=== PATIENT | male | born 1945 | race Caucasian/White ===

== ENCOUNTER 2016-06-09 00:33 | Inpatient (IN) | payer MEDICARE, BC ==
[2016-06-09] MEDS ORDERED: IPRATROPIUM/ALBUTEROL 3 ML NEB INH STA (00:42)
[2016-06-09] MEDS ORDERED: methylPREDNISolone SUCCINATE 125 MG/2 ML VIAL IVP STA (00:42)
[2016-06-09] MEDS ORDERED: IPRATROPIUM/ALBUTEROL 3 ML NEB INH ONE ×3 (00:49→01:09)
[2016-06-09] MEDS ORDERED: methylPREDNISolone SUCCINATE 125 MG/2 ML VIAL IVP ONE (00:55)
[2016-06-09] MEDS ORDERED: ALBUTEROL NEB 2.5 MG/3 ML INH STA ×7 (01:43→03:19)
[2016-06-09] MEDS ORDERED: levoFLOXacin 250 MG TABLET PO STA (01:45)
[2016-06-09] MEDS ORDERED: levoFLOXacin 250 MG TABLET PO ONE (01:50)
[2016-06-09] MEDS ORDERED: ALBUTEROL NEB 2.5 MG/3 ML INH ONE ×2 (01:53→03:21)
[2016-06-09] MEDS ORDERED: TERBUTALINE 1 MG/ML VIAL SUBQ ONE (02:05)
[2016-06-09] MEDS ORDERED: MAGNESIUM SULFATE 2 GRAM 50 ML IV ONE ×2 (02:05→02:13)
[2016-06-09] MEDS ORDERED: ACETAMINOPHEN 500 MG TABLET PO ONE (04:09)
[2016-06-09] MEDS ORDERED: ACETAMINOPHEN 500 MG TABLET PO STA (04:16)
[2016-06-09] MEDS ORDERED: IBUPROFEN 600 MG TABLET PO PRN (07:19)
[2016-06-09] MEDS ORDERED: oxyCODONE 5 MG TABLET PO PRN ×2 (07:19)
[2016-06-09] MEDS ORDERED: SODIUM CHLORIDE FLUSH 0.9% 10 ML SYRINGE IVP PRN (07:19)
[2016-06-09] MEDS ORDERED: ALBUTEROL NEB 2.5 MG/3 ML INH PRN (07:19)
[2016-06-09] MEDS ORDERED: IPRATROPIUM/ALBUTEROL 3 ML NEB INH PRN (07:19)
[2016-06-09] MEDS: SODIUM CHLORIDE FLUSH 0.9% 10 ML SYRINGE IVP SCH ×2 (09:26→21:50)
[2016-06-09] MEDS: POLYETHYLENE GLYCOL 3350 17 GM PACKET PO SCH (09:26)
[2016-06-09] MEDS: levoFLOXacin 250 MG TABLET PO SCH (09:27)
[2016-06-09] MEDS: SACCHAROMYCES BOULARDII 250 MG CAPSULE PO SCH ×2 (09:27→17:04)
[2016-06-09] MEDS: LEVOTHYROXINE 125 MCG TABLET PO SCH (12:03)
[2016-06-09] MEDS: OXYBUTYNIN 5MG TABLET PO SCH ×2 (12:03→21:49)
[2016-06-09] MEDS: ASPIRIN 325 MG TABLET PO SCH (12:03)
[2016-06-09] MEDS: methylPREDNISolone SUCCINATE 40 MG/ML VIAL IVP SCH ×2 (13:51→21:49)
[2016-06-10] MEDS: IPRATROPIUM 0.2 MG/ML NEB INH PRN ×2 (01:25→10:05)
[2016-06-10] MEDS: LEVALBUTEROL 1.25 MG INH PRN ×2 (01:25→10:05)
[2016-06-10] MEDS: methylPREDNISolone SUCCINATE 40 MG/ML VIAL IVP SCH (06:26)
[2016-06-10] MEDS: SODIUM CHLORIDE FLUSH 0.9% 10 ML SYRINGE IVP SCH (06:27)
[2016-06-10] MEDS: LEVOTHYROXINE 125 MCG TABLET PO SCH (06:27)
[2016-06-10] MEDS: SACCHAROMYCES BOULARDII 250 MG CAPSULE PO SCH (08:44)
[2016-06-10] MEDS: ASPIRIN 325 MG TABLET PO SCH (08:44)
[2016-06-10] MEDS ORDERED: amLODIPine 5 MG TABLET PO SCH (09:00)
[2016-06-10] MEDS: levoFLOXacin 250 MG TABLET PO SCH (09:18)
[2016-06-10] MEDS: OXYBUTYNIN 5MG TABLET PO SCH (09:18)
[2016-06-10] MEDS: POLYETHYLENE GLYCOL 3350 17 GM PACKET PO SCH (09:19)
== END 2016-06-10 12:25 | disposition home or self-care (01) | DRG 189 ==
DX: J96.01 Acute respiratory failure with hypoxia (principal); J44.9 Chronic obstructive pulmonary disease, unspecified; R09.02 Hypoxemia; J18.9 Pneumonia, unspecified organism; J44.1 Chronic obstructive pulmonary disease with (acute) exacerbation; Z68.42 Body mass index [BMI] 45.0-49.9, adult; G47.33 Obstructive sleep apnea (adult) (pediatric); E66.9 Obesity, unspecified; I10 Essential (primary) hypertension; I48.91 Unspecified atrial fibrillation; E03.9 Hypothyroidism, unspecified; Z79.82 Long term (current) use of aspirin; Z86.2 Personal history of diseases of the blood and blood-forming organs and certain disorders involving the immune mechanism

== ENCOUNTER 2016-09-17 08:00 | Outpatient (CLI) | payer MEDICARE, BC | END 2016-09-17 08:01 | disposition home or self-care (01) | DX: I10 Essential (primary) hypertension (principal); E11.9 Type 2 diabetes mellitus without complications; Z12.5 Encounter for screening for malignant neoplasm of prostate; Z79.899 Other long term (current) drug therapy; E03.9 Hypothyroidism, unspecified | CPT/HCPCS: 36415; 80053; 80061; 82043; 83036; 84443; 85025; G0103 ==

== ENCOUNTER 2016-09-17 12:07 | Outpatient (CLI) | payer MEDICARE, BC | END 2016-09-17 12:08 | disposition home or self-care (01) | DX: I34.0 Nonrheumatic mitral (valve) insufficiency (principal); I07.1 Rheumatic tricuspid insufficiency; I10 Essential (primary) hypertension; R60.0 Localized edema; E11.9 Type 2 diabetes mellitus without complications; Z12.5 Encounter for screening for malignant neoplasm of prostate; Z79.899 Other long term (current) drug therapy; E03.9 Hypothyroidism, unspecified | CPT/HCPCS: 36415; 80053; 80061; 82043; 83036; 84443; 85025; 93306; G0103 ==

== ENCOUNTER 2016-10-09 18:46 | Emergency (ER) | payer MEDICARE, BC ==
--- NOTE | 2016-10-09 19:12 | ED Physician Documentation ---
History of Present Illness - Stated complaint Stated Complaint: HIGH BLOOD PRESSURE - Chief complaint Chief Complaint: General - History obtained from History obtained from: Patient, Family - History of Present Illness Timing: Unknown Pain level max: 0 Pain level now: 0 Improved by: nothing Worsened by: nothing - Additonal information Additional information: Patient is a 71-year-old male with a history of hypertension his blood pressure is been higher than usual for the past several days. His doctor told him that if his systolic went over 150 to come to the emergency department to be evaluated. Patient is currently asymptomatic. Has no palpitations, no chest pain, no dyspnea, no headache, no focal neurological deficits. No visual changes. Review of Systems Constitutional: denies: Fever, Chills Eyes: denies: Decreased vision, Photophobia Ears: denies: Ear pain Nose: denies: Rhinorrhea / runny nose, Congestion Throat: denies: Sore throat Cardiac: denies: Chest pain / pressure Respiratory: reports: Wheezing (occasional with asthma). denies: Dyspnea, Cough GI: denies: Abdominal Pain, Nausea, Vomiting Skin: denies: Rash Musculoskeletal: denies: Neck pain, Back pain Neurologic: denies: Focal weakness, Numbness, Syncope, Confused, Altered mental status, Headache PD PAST MEDICAL HISTORY - Past Medical History Cardiovascular: Hypertension, Atrial fibrillation Respiratory: Sleep apnea, CPAP use Neuro: None Endocrine/Autoimmune: HyPOthyroidism GI: None : Frequency, Kidney stones HEENT: None Psych: None Musculoskeletal: None Derm: None - Past Surgical History Past Surgical History: Yes Ortho: Carpal Tunnel surgery HEENT: Cataracts - Present Medications Home Medications: Ambulatory Orders Medication Instructions Recorded Confirmed Aspirin [Haylee] 325 mg PO DAILY 07/08/13 10/09/16 Amlodipine Besylate 10 mg PO DAILY 06/09/16 10/09/16 Irbesartan 300 mg PO DAILY 06/09/16 10/09/16 Levothyroxine [Synthroid] 100 mcg PO QDAC 06/09/16 10/09/16 Metoprolol Succinate [Toprol Xl] 100 mg PO DAILY 06/09/16 10/09/16 Oxybutynin Chloride [Ditropan Xl] 10 mg PO DAILY 06/09/16 10/09/16 Albuterol Sulfate [Proair Hfa 0 inh INH .FREQ 10/09/16 10/09/16 Inhaler] - Allergies Allergies/Adverse Reactions: Allergies Allergy/AdvReac Type Severity Reaction Status Date / Time hydrocodone bitartrate * AdvReac Intermediate Hallucinati Verified 10/09/16 18: 54 [From Vicodin] ons - Social History Does the pt smoke?: No Smoking Status: Never smoker Does the pt drink ETOH?: No Does the pt have substance abuse?: No - Immunizations Immunizations are current?: Yes - POLST Patient has POLST: No PD ED PE NORMAL - Vitals Vital signs reviewed: Yes - General General: Alert and oriented X 3, No acute distress - HEENT HEENT: Moist mucous membranes - Neck Neck: Supple, no meningeal sign - Cardiac Cardiac: RRR - Respiratory Respiratory: No respiratory distress, Clear bilaterally - Abdomen Abdomen: Soft, Non tender, Non distended - Derm Derm: Warm and dry, No rash - Extremities Extremities: No edema, No calf tenderness / cord - Neuro Neuro: Alert and oriented X 3, metrology specialist 2-12 intact, No motor deficit, No sensory deficit, Normal speech - Psych Psych: Normal mood, Normal affect Results - Vitals Vitals: Vital Signs - 24 hr 10/09/16 10/09/16 18:51 19:44 Temperature 36.8 C Heart Rate 50 L 49 L Respiratory 18 18 Rate Blood Pressure 173/70 H 134/70 H O2 Saturation 99 95 Oxygen O2 Source Room air - EKG (time done) 1950 Rate: Rate (enter#) (43) Rhythm: Sinus bradycardia [place]: Normal Intervals: Normal RI QRS: Normal Ischemia: Normal ST segments PD MEDICAL DECISION MAKING - ED course Complexity details: re-evaluated patient, considered differential, d/w patient, d/w PMD (Dr. Connell (will follow up in the office)) ED course: Patient is a 71-year-old male who presents to the emergency department with asymptomatic hypertension. He is well-appearing, nontoxic. Afebrile. No chest pain, no dyspnea. We will have him follow-up with his doctor for further evaluation and care. No evidence clinically of pheochromocytoma, aortic dissection, acute coronary syndrome.Patient had an EKG this week and an echocardiogram last week. Patient and family counseled regarding signs and symptoms for which I believe and urgent re-evaluation would be necessary. Patient with good understanding of and agreement to plan and is comfortable going home at this time This document was made in part using voice recognition software. While efforts are made to proofread this document, sound alike and grammatical errors may occur. Departure - Departure Disposition: 01 Home, Self Care Clinical Impression: Hypertension Qualifiers: Hypertension type: essential hypertension Qualified Code(s): I10 - Essential ( primary) hypertension Condition: Good Instructions: ED HTN Established Follow-Up: Siri Connell MD [Primary Care Provider] - Within 1 week Comments: Return if you worsen including chest pain, shortness of breath, changes in your vision, numbness or weakness. Discharge Date/Time: 10/09/16 20:02
[2016-10-09 19:45] VITALS: BP 134/70
== END 2016-10-09 20:02 | disposition home or self-care (01) ==
LOC: ED 18:46
DX: I10 Essential (primary) hypertension (principal); R00.1 Bradycardia, unspecified; Z79.82 Long term (current) use of aspirin; E03.9 Hypothyroidism, unspecified
CPT/HCPCS: 93005; 93010; 99283; 99284

== ENCOUNTER 2016-10-15 18:05 | Outpatient (CLI) | payer MEDICARE, BC | END 2016-10-15 18:06 | disposition home or self-care (01) | DX: R23.2 Flushing (principal); R00.2 Palpitations ==

== ENCOUNTER 2016-12-31 10:34 | Outpatient (CLI) | payer MEDICARE, BC ==
[2016-12-31 13:10] LABS: BASOPHILS # (AUTO) 0.1 10^3/uL (0.0-0.1); BASOPHILS % (AUTO) 0.9 %; EOSINOPHILS # (AUTO) 0.1 10^3/uL (0.0-0.7); EOSINOPHILS % (AUTO) 2.1 %; HCT - HEMATOCRIT 41.8 % (42.0-52.0); HGB - HEMOGLOBIN 14.5 g/dL (14.0-18.0); LYMPHOCYTES # (AUTO) 1.3 10^3/uL (1.5-3.5); LYMPHOCYTES % (AUTO) 20.6 %; MEAN CORPUSCULAR HEMOGLOBIN 30.8 pg (27.0-31.0); MEAN CORPUSCULAR HGB CONC 34.6 g/dL (32.0-36.0); MEAN PLATELET VOLUME 9.2 fL (7.4-11.4); MONOCYTES # (AUTO) 0.7 10^3/uL (0.0-1.0); MONOCYTES % (AUTO) 11.2 %; NEUTROPHILS % (AUTO) 65.2 %; RED CELL DISTRIBUTION WIDTH 13.8 % (12.0-15.0); UNCORRECTED WHITE BLOOD COUNT 6.2 x10^3/uL; WHITE BLOOD COUNT 6.2 x10^3/uL (4.8-10.8)
[2016-12-31 13:30] LABS: ALBUMIN/GLOBULIN RATIO 1.9 (1.0-2.2); BILIRUBIN,TOTAL 0.8 mg/dL (0.2-1.0); BUN - BLOOD UREA NITROGEN 24 mg/dL (6-20); CALCIUM 9.2 mg/dL (8.5-10.3); CARBON DIOXIDE - CO2 22 mmol/L (21-32); CHLORIDE 105 mmol/L (101-111); CHOLESTEROL 147 mg/dL; CREATININE 1.2 mg/dL (0.6-1.2); GFR - MDRD 60 (>89); GLUCOSE 112 mg/dL (70-100); HDL CHOLESTEROL 37 mg/dL; LDL/HDL RATIO 2.5 (<3.6); POTASSIUM 4.3 mmol/L (3.5-5.0); SODIUM 136 mmol/L (135-145); TOTAL PROTEIN 7.2 g/dL (6.7-8.2); TRIGLYCERIDES 83 mg/dL; VLDL CHOLESTEROL 17 mg/dL
== END 2016-12-31 10:35 | disposition home or self-care (01) ==
LOC: LAB.WCP 10:34
PROVIDERS: ATTEND Family Medicine
DX: I10 Essential (primary) hypertension (principal); E11.9 Type 2 diabetes mellitus without complications; E03.9 Hypothyroidism, unspecified
CPT/HCPCS: 36415; 80053; 80061; 84443; 85025

== ENCOUNTER 2017-07-06 08:00 | Outpatient (CLI) | payer MEDICARE, BC ==
[2017-07-06 20:12] LABS: ALBUMIN 4.7 g/dL (3.2-5.5); ALBUMIN/GLOBULIN RATIO 1.6 (1.0-2.2); ALKALINE PHOSPHATASE 75 IU/L (42-121); ALT ALANINE AMINOTRANSFERASE 27 IU/L (10-60); AST ASPARTATE AMINOTRANSFERASE 24 IU/L (10-42); BILIRUBIN,TOTAL 0.9 mg/dL (0.2-1.0); BUN - BLOOD UREA NITROGEN 24 mg/dL (6-20); CALCIUM 9.2 mg/dL (8.5-10.3); CARBON DIOXIDE - CO2 21 mmol/L (21-32); CHLORIDE 104 mmol/L (101-111); CREATININE 1.4 mg/dL (0.6-1.2); GFR - MDRD 50 (>89); GLUCOSE 103 mg/dL (70-100); SODIUM 137 mmol/L (135-145); TOTAL PROTEIN 7.7 g/dL (6.7-8.2)
[2017-07-06 20:52] LABS: HB2 TOTAL 16.1 g/dL; HEMOGLOBIN A1C 0.56 g/dL; HEMOGLOBIN A1C % 5.3 % (4.6-6.2)
== END 2017-07-06 08:01 | disposition home or self-care (01) ==
LOC: LAB.WCP 08:00
PROVIDERS: ATTEND Family Medicine
DX: E11.9 Type 2 diabetes mellitus without complications (principal); R00.1 Bradycardia, unspecified; R00.2 Palpitations; I10 Essential (primary) hypertension; E03.9 Hypothyroidism, unspecified
CPT/HCPCS: 36415; 80053; 83036; 84443

== ENCOUNTER 2017-08-19 08:00 | Outpatient (CLI) | payer MEDICARE, BC ==
[2017-08-19 18:59] LABS: BASOPHILS % (AUTO) 0.6 %; EOSINOPHILS # (AUTO) 0.1 10^3/uL (0.0-0.7); EOSINOPHILS % (AUTO) 1.6 %; LYMPHOCYTES % (AUTO) 17.7 %; MEAN CORPUSCULAR HEMOGLOBIN 30.8 pg (27.0-31.0); MEAN CORPUSCULAR HGB CONC 33.2 g/dL (32.0-36.0); MEAN CORPUSCULAR VOLUME 92.7 fL (80.0-94.0); MEAN PLATELET VOLUME 9.4 fL (7.4-11.4); MONOCYTES # (AUTO) 0.5 10^3/uL (0.0-1.0); MONOCYTES % (AUTO) 9.6 %; NEUTROPHILS # (AUTO) 3.9 10^3/uL (1.5-6.6); NEUTROPHILS % (AUTO) 70.5 %; PLT - PLATELET COUNT 251 10^3/uL (130-450); RED BLOOD COUNT 4.55 10^6/uL (4.70-6.10); RED CELL DISTRIBUTION WIDTH 13.6 % (12.0-15.0); WHITE BLOOD COUNT 5.5 x10^3/uL (4.8-10.8)
[2017-08-19 19:27] LABS: HB2 TOTAL 15.3 g/dL; HEMOGLOBIN A1C 0.49 g/dL; HEMOGLOBIN A1C % 5.1 % (4.6-6.2)
[2017-08-19 19:35] LABS: ALBUMIN 4.9 g/dL (3.2-5.5); ALBUMIN/GLOBULIN RATIO 1.9 (1.0-2.2); ALKALINE PHOSPHATASE 77 IU/L (42-121); ALT ALANINE AMINOTRANSFERASE 29 IU/L (10-60); AST ASPARTATE AMINOTRANSFERASE 24 IU/L (10-42); BILIRUBIN,TOTAL 0.9 mg/dL (0.2-1.0); BUN - BLOOD UREA NITROGEN 26 mg/dL (6-20); CALCIUM 9.5 mg/dL (8.5-10.3); CARBON DIOXIDE - CO2 23 mmol/L (21-32); CHLORIDE 105 mmol/L (101-111); CHOL/HDL RATIO 4.1 (<5.0); CHOLESTEROL 144 mg/dL; CREATININE 1.3 mg/dL (0.6-1.2); GFR - MDRD 54 (>89); GLUCOSE 103 mg/dL (70-100); HDL CHOLESTEROL 35 mg/dL; LDL CHOLESTEROL,CALCULATED 98 mg/dL; LDL/HDL RATIO 2.8 (<3.6); SODIUM 137 mmol/L (135-145); TOTAL PROTEIN 7.5 g/dL (6.7-8.2); VLDL CHOLESTEROL 11 mg/dL
== END 2017-08-19 08:01 | disposition home or self-care (01) ==
LOC: LAB.WCP 08:00
PROVIDERS: ATTEND Family Medicine
DX: I10 Essential (primary) hypertension (principal); E11.9 Type 2 diabetes mellitus without complications
CPT/HCPCS: 36415; 80053; 80061; 83036; 83721; 84443; 85025

== ENCOUNTER 2017-10-07 08:28 | Inpatient (IN) | payer MEDICARE, BC ==
[2017-10-07] MEDS ORDERED: SODIUM CHLORIDE 0.9% 1,000 ML IV ONE (09:08)
--- NOTE | 2017-10-07 09:15 | ED Physician Documentation ---
History of Present Illness - Stated complaint Stated Complaint: LIGHT HEADED/SOA/RAPID HR - Chief complaint Chief Complaint: Cardiac - Additonal information Additional information: hx from pt 72 male one prior episode on afib - converted in office, was on coumadin for a while fine since then no longer on coumadin this morning at 718 AM felt recurrent a fib he is quite certain this just started today he has felt fine otherwise recently other than a but tired for 2 days (which his does not feel in unusual) no recent med changes no travel no inpt hospital or surgery no CP no fever cough NVD etc no excessive caffeine or stimulants is on wt watchers to lose weight Review of Systems Constitutional: denies: Fever Cardiac: reports: Palpitations. denies: Chest pain / pressure Respiratory: denies: Dyspnea GI: denies: Abdominal Pain, Nausea, Vomiting, Diarrhea Neurologic: reports: Generalized weakness Endocrine: denies: Easy bruising / bleeding Immunocompromised: denies: Immunocompromised PD PAST MEDICAL HISTORY - Past Medical History Cardiovascular: Hypertension, Atrial fibrillation Respiratory: Sleep apnea, CPAP use Neuro: None Endocrine/Autoimmune: HyPOthyroidism GI: None : Frequency, Kidney stones HEENT: None Psych: None Musculoskeletal: None Derm: None - Past Surgical History Past Surgical History: Yes Ortho: Carpal Tunnel surgery HEENT: Cataracts - Present Medications Home Medications: Ambulatory Orders Medication Instructions Recorded Confirmed Aspirin [Haylee] 325 mg PO DAILY 07/08/13 10/09/16 Amlodipine Besylate 5 mg PO DAILY 06/09/16 10/09/16 Irbesartan 300 mg PO DAILY 06/09/16 10/09/16 Levothyroxine [Synthroid] 100 mcg PO QDAC 06/09/16 10/09/16 Oxybutynin Chloride [Ditropan Xl] 10 mg PO DAILY 06/09/16 10/09/16 Albuterol Sulfate [Proair Hfa 0 inh INH .FREQ 10/09/16 10/09/16 Inhaler] Chlorthalidone 25 10/07/17 Escitalopram [Lexapro] 15 10/07/17 buPROPion [Wellbutrin Sr] 150 10/07/17 - Allergies Allergies/Adverse Reactions: Allergies Allergy/AdvReac Type Severity Reaction Status Date / Time hydrocodone bitartrate * AdvReac Intermediate Hallucinati Verified 10/09/16 18: 54 [From Vicodin] ons - Social History Does the pt smoke?: No Smoking Status: Never smoker Does the pt drink ETOH?: No Does the pt have substance abuse?: No - Immunizations Immunizations are current?: Yes - POLST Patient has POLST: No PD ED PE NORMAL - Vitals Vital signs reviewed: Yes - Cardiac Cardiac: No: RRR (irreg) - Respiratory Respiratory: No respiratory distress, Clear bilaterally - Abdomen Abdomen: Soft, Non tender - Derm Derm: Normal color - Extremities Extremities: No tenderness to palpate, No edema, No calf tenderness / cord - Neuro Neuro: Alert and oriented X 3 Results - Vitals Vitals: Vital Signs - 24 hr 10/07/17 10/07/17 10/07/17 08:41 10:17 11:46 Temperature 36.3 C L Heart Rate 107 H 116 H 105 H Respiratory 16 12 12 Rate Blood Pressure 116/73 123/86 H 100/75 O2 Saturation 97 98 97 10/07/17 10/07/17 10/07/17 12:24 13:23 14:50 Temperature Heart Rate 108 H 102 H 100 Respiratory 16 18 12 Rate Blood Pressure 117/100 H 112/67 128/85 H O2 Saturation 98 100 99 10/07/17 10/07/17 10/07/17 15:50 16:00 16:35 Temperature Heart Rate 110 H 110 H 119 H Respiratory 12 12 17 Rate Blood Pressure 120/84 H 110/80 O2 Saturation 98 98 10/07/17 10/07/17 10/07/17 17:07 18:08 19:17 Temperature Heart Rate 108 H 93 88 Respiratory 12 16 12 Rate Blood Pressure 119/77 107/72 114/96 H O2 Saturation 98 100 98 Oxygen O2 Source Nasal cannula - EKG (time done) 0841 Rate: Rate (enter#) (113) Rhythm: Atrial fibrillation Intervals: Prolonged QT (prolonged). No: Normal ND Ischemia: ST depression (likely rate related) - Labs Labs: Laboratory Tests 10/07/17 10/07/17 10/07/17 08:57 08:57 08:57 WBC 5.3 RBC 4.58 L Hgb 14.5 Hct 42.2 MCV 92.0 MCH 31.6 H MCHC 34.4 RDW 13.0 Plt Count 204 MPV 8.7 Neut # 3.8 Lymph # 0.7 L Burt # 0.5 Eos # 0.1 Baso # 0.1 Absolute Nucleated RBC 0.00 Nucleated RBC % 0.1 Sodium 134 L Potassium 3.7 Chloride 104 Carbon Dioxide 21 Anion Gap 9.0 BUN 17 Creatinine 1.4 H Estimated GFR (MDRD) 50 L Glucose 108 H Calcium 8.9 Troponin I < 0.04 B-Natriuretic Peptide 10/07/17 08:57 WBC RBC Hgb Hct MCV MCH MCHC RDW Plt Count MPV Neut # Lymph # Burt # Eos # Baso # Absolute Nucleated RBC Nucleated RBC % Sodium Potassium Chloride Carbon Dioxide Anion Gap BUN Creatinine Estimated GFR (MDRD) Glucose Calcium Troponin I B-Natriuretic Peptide 25 Procedures - Procedural sedation Sedation prep: Informed consent, Time out completed, Last meal (yesterday), PE performed, AHA 2 - mild disease, IV O2 monitor, ET CO2 monitor, RT present Sedation medications: morphine, propofol, given by MD Patient status during sedation: Responds to verbal, Vitals remained stable, Maintained airway, Recovered uneventfully. No: Complications Sedation recovery: Recovered uneventfully - Cardioversion 1 Time of attempt: 14:45 Indication: Other (continued a fib) Risks, benefits, alternatives explained to: Pt, Other () Prep: IV, O2, environmental monitoring technician, Pulse ox, Airway equip Meds: Morphine, Propofol CS via: Pads, AP approach Sync: Biphasic, 50j Post cardioversion rhythm: A-fib Complications: Other (none) Performed by: ED MD 2 Time of attempt: 16:45 Indication: Other (a fib) Risks, benefits, alternatives explained to: Pt Prep: IV, O2, environmental monitoring technician, Pulse ox, Airway equip Meds: Morphine, Propofol CS via: Pads, AP approach Sync: 100j Post cardioversion rhythm: A-fib Complications: Other (none) Performed by: ED MD 3 Time of attempt: 16:45 Indication: Other (a fib) Risks, benefits, alternatives explained to: Pt Prep: IV, O2, environmental monitoring technician, Pulse ox, Airway equip Meds: Morphine, Propofol CS via: AP approach Sync: 200j Post cardioversion rhythm: A-fib Complications: Other (none) Performed by: ED PD MEDICAL DECISION MAKING - ED course ED course: fairly certain onset a fib 718 this AM one prior brief episode a fib but not normally in a fib fairly symptomatic but not unstable did not convert with procainamide did not convert with cardiovert at 50, 100, or 200 J biphasic now tachy no dilt (hospital shortage) so gave lopressor IV and HR down under 105, BP also about 110 may eventually be dced on rate control meds and xarelto but feel pt needs to be stabilized on oral meds, perhaps have an echo etc spoke to day hospitalist who rec inpt, night hospitalist to ED for admit Departure - Departure Disposition: 66 [facility] DC/Xfer Clinical Impression: Renal insufficiency Atrial fibrillation Qualifiers: Atrial fibrillation type: paroxysmal Qualified Code(s): I48.0 - Paroxysmal atrial fibrillation Condition: Fair Comments: Do not take your lexapro for 48 hr as it potentially could interact with some of the medications given in the ER
--- NOTE | 2017-10-07 09:16 | XRAY Report ---
EXAM: CHEST RADIOGRAPHY EXAM DATE: 10/07/2017 08:54 AM. CLINICAL HISTORY: [place]. COMPARISON: 06/09/2016. TECHNIQUE: 1 view. FINDINGS: Lungs/Pleura: No focal opacities evident. No pleural effusion. No pneumothorax. Mediastinum: Within exam limitations, the cardiomediastinal contour is normal. Other: None. IMPRESSION: No active cardiopulmonary disease [facility] Referring Provider Line: [phone] SITE ID: [id number]
--- NOTE | 2017-10-07 09:16 | XRAY Preliminary Report ---
Exam: XR CHEST 1 VIEW X-RAY IMPRESSION: No active cardiopulmonary disease [facility] SITE ID: [id number]
[2017-10-07] MEDS ORDERED: PROCAINAMIDE 1,000 MG in SODIUM CHLORIDE 0.9% 240 ML IV STA ×2 (09:17→11:56)
[2017-10-07 09:20] LABS: CALCIUM 8.9 mg/dL (8.5-10.3); CREATININE 1.4 mg/dL (0.6-1.2)
[2017-10-07 09:22] LABS: BASOPHILS # (AUTO) 0.1 10^3/uL (0.0-0.1); BASOPHILS % (AUTO) 1.1 %; EOSINOPHILS # (AUTO) 0.1 10^3/uL (0.0-0.7); EOSINOPHILS % (AUTO) 2.6 %; HGB - HEMOGLOBIN 14.5 g/dL (14.0-18.0); LYMPHOCYTES # (AUTO) 0.7 10^3/uL (1.5-3.5); LYMPHOCYTES % (AUTO) 13.8 %; MEAN CORPUSCULAR HEMOGLOBIN 31.6 pg (27.0-31.0); MEAN CORPUSCULAR HGB CONC 34.4 g/dL (32.0-36.0); MEAN PLATELET VOLUME 8.7 fL (7.4-11.4); MONOCYTES # (AUTO) 0.5 10^3/uL (0.0-1.0); MONOCYTES % (AUTO) 9.7 %; NEUTROPHILS # (AUTO) 3.8 10^3/uL (1.5-6.6); NEUTROPHILS % (AUTO) 72.8 %; PLT - PLATELET COUNT 204 10^3/uL (130-450); RED BLOOD COUNT 4.58 10^6/uL (4.70-6.10); WHITE BLOOD COUNT 5.3 x10^3/uL (4.8-10.8)
[2017-10-07] MEDS ORDERED: PROPOFOL 200 MG/20 ML VIAL IVP STA (15:26)
[2017-10-07] MEDS ORDERED: MORPHINE 2 MG/ML SYRINGE IVP STA (15:26)
[2017-10-07] MEDS ORDERED: PROMETHAZINE INJ 12.5 MG in SODIUM CHLORIDE 0.9% 50 ML IV STA (15:26)
[2017-10-07] MEDS ORDERED: METOPROLOL 5 MG/5 ML VIAL IVP STA (16:49)
[2017-10-07] MEDS ORDERED: ONDANSETRON 4 MG/2 ML VIAL IVP PRN (19:54)
[2017-10-07] MEDS ORDERED: SODIUM CHLORIDE FLUSH 0.9% 10 ML SYRINGE IVP PRN (19:54)
[2017-10-07] MEDS: APIXABAN 2.5 MG TABLET PO SCH (22:43)
[2017-10-07] MEDS: METOPROLOL TARTRATE 50 MG TABLET PO SCH (22:43)
[2017-10-07 23:07] LABS: HB2 TOTAL 15.8 g/dL; HEMOGLOBIN A1C 0.48 g/dL; HEMOGLOBIN A1C % 4.9 % (4.6-6.2)
--- NOTE | 2017-10-08 03:29 | HISTORY & PHYSICAL EXAMINATION ---
DATE OF SERVICE: 10/07/2017 Physician: Tiffany Frazier MD CHIEF COMPLAINT: Palpitations. HISTORY OF PRESENT ILLNESS: Patient is a pleasant 72-year-old white male with multiple past medical problems, including history of paroxysmal atrial fibrillation, who presented to the ER around 8:30 a.m. on 10/07/2017. Patient reported that he had an episode of atrial fibrillation about 6 years ago. At that time, he was on Coumadin for about a month and took metoprolol for rate control. The metoprolol recently brought his heart rate down to the 30s and 40s; therefore, about 9 months ago, it was discontinued. Notably, patient also takes amlodipine for control of hypertension. Patient reported that on the morning of 10/07/2017 around 7:30 a.m., his entered his room, waking him up, turning on the radio. When he woke up , he suddenly felt palpitations, which were exactly the same as he felt 6 years ago with the first episode of atrial fibrillation. He knew the symptoms very well; therefore, he came to the ER for evaluation. He denied associated symptoms of shortness of breath, chest pain, dizziness, lightheadedness or any additional complaint. Upon presentation to the ER, he was found in atrial fibrillation and rapid ventricular rate. EKG showed nonspecific changes , no acute ischemia. Troponin was negative. The heart rate was around 120. Chest x-ray did not show acute abnormality. Laboratory workup was unremarkable, noting that patient has chronic renal insufficiency. Creatinine was 1.4, which was in the upper range of his baseline. BNP was 25. Patient stayed in the ER basically all day long. Dr. Yepez took care of him and attempted pharmacologic cardioversion initially using procainamide. The patient did not respond and remained in atrial fibrillation. Therefore, electrocardioversion was attempted 3 times using 150 joules first, subsequently 200 joules. Regardless of all these interventions, the patient remained with atrial fibrillation. He did receive a dose of IV metoprolol. His heart rate in the afternoon was mainly in the 90s and his blood pressure was 110/72. He still felt symptomatic with palpitations when I examined him around 7:30 p.m. PAST MEDICAL HISTORY 1. Paroxysmal atrial fibrillation. Currently not on anticoagulation and not really taking any rate control medication, although takes amlodipine, but that would not be exactly for atrial fibrillation rate control. 2. Hypertension. 3. Hypothyroidism. 4. Depression. 5. History of nephrolithiasis. 6. COPD/asthma. 7. Remote history of rheumatic fever in childhood around age 4. 8. Obstructive sleep apnea on nocturnal CPAP. 9. Overactive bladder. 10. Chronic kidney disease with creatinine baseline between 1.2 and 1.4. 11. Past echocardiogram was from 08/2016. It showed mild concentric left ventricular hypertrophy. Systolic function was normal with ejection fraction of 60%-65%. There was moderate right atrial enlargement, mild aortic regurgitation, mild to moderate mitral regurgitation, mild to moderate tricuspid regurgitation, and abnormal right heart pressures. Cardiac catheterization with Dr. Kuldeep Ac. OUTPATIENT MEDICATIONS: Being reconciled. Patient was on 1. Bupropion. 2. Lexapro. 3. Chlorthalidone. 4. Amlodipine. 5. Ditropan. 6. Levothyroxine. 7. Irbesartan. 8. Aspirin. 9. Albuterol SOCIAL HISTORY: Patient does not smoke, does not drink. He is fully functional with activities of daily living. FAMILY HISTORY: Positive for throat cancer and parathyroid cancer. INDUSTRIAL SAFETY ENGINEER: Dr. Finnegan. REVIEW OF SYSTEMS: Please see pertinent positives listed above at history of present illness. Patient did not report additional complaints on the 12-point review. PHYSICAL EXAMINATION VITAL SIGNS: Temperature 36.6 Celsius, heart rate in the 90s, blood pressure 115/65, respiratory rate 16, oxygen saturation 98% on room air. GENERAL: Patient is a well-developed male who was not in distress. NEUROLOGIC: Alert, oriented, nonfocal. PSYCHIATRIC: Cooperative. SKIN: With signs of chronic venous stasis on the lower extremities and dry skin on the upper extremities. [place] cheeks. No jaundice. No pallor. CARDIOVASCULAR: S1, S2, irregularly irregular. Heart sounds were distant. I could not hear a significant murmur, although in past medical record, a 2/6 systolic murmur was described. RESPIRATORY: Normal respiratory rate. No increased work of breathing. Clear to auscultation bilaterally without wheezes or crackles. ABDOMEN: Obese, benign. Bowel tones present. MUSCULOSKELETAL: Truncal obesity, atraumatic. 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 ASSESSMENT/ACTIVE ISSUES 1. Atrial fibrillation with rapid ventricular rate. Patient started to feel symptoms when he woke up in the morning. It is not exactly known how long he has been in atrial fibrillation as the atrial fibrillation could develop in his sleep, but patient seems pretty sure that the onset was somewhat acute. 2. Recent history of bradycardia on metoprolol. That is why metoprolol was discontinued 9 months ago. Patient might be developing tachy/amira syndrome. For now, we will attempt restarting metoprolol. If he will be bradycardic, then obviously he should be evaluated for pacemaker implant. In the meantime, I will hold amlodipine as that could be negative chronotropic as well. 3. Chronic renal insufficiency, creatinine around baseline. 4. Obstructive sleep apnea, using CPAP. 5. Multiple chronic medical problems as listed in past medical history. Overall, hemodynamically stable. 6. Prolonged ER course. The patient stayed in the ER from 8:30 in the morning to 7:30 p.m. He underwent cardioversion 3 times and received sedatives. He still was symptomatic when I examined him and it seems that his heart rate is still not controlled. He has multiple risk factors which would make him high risk to develop tachycardia or bradycardia or other cardiac arrhythmia and complications. Therefore, he will need to be hospitalized until he gets stable enough to be discharged. PLAN AND ORDERS: Patient is getting admitted as inpatient. I expect that he will be hospitalized for 2 days. We will start metoprolol tartrate, monitor on telemetry, check hemoglobin A1c, recheck troponin, order echocardiogram for the morning. Regarding CHADS2-VASc score, it is at least 2, given history of hypertension and age. It could be higher due to cardiomyopathy. Echocardiogram is pending. The patient has a remote history of rheumatic fever, and I think that oral anticoagulant could be a good start. Depending on the echocardiogram result such as if significant valvular heart disease is shown, then obviously NOAC would not be the best choice, and in that case, Coumadin might need to be considered. This issue could also be discussed with the patient's organ pipe voicer, Dr. Finnegan. For now, I started David. Our goal during this hospital stay should be to stabilize the patient hemodynamically, start anticoagulation, and then refer him for outpatient cardiology followup to arrange for cardioversion or other therapies as needed. That all depends on the clinical course. Time spent with the care of this patient was 60 minutes. ATTESTATION: I certify that the reasonable expectation for this patient is to remain hospitalized for 48 hours, however, to discharge or transfer to another facility within 96 hours. TD: 10/08/2017 03:28 BHUPINDER
[2017-10-08 06:11] LABS: CALCIUM 8.9 mg/dL (8.5-10.3); CREATININE 1.2 mg/dL (0.6-1.2)
[2017-10-08] MEDS: METOPROLOL TARTRATE 50 MG TABLET PO SCH ×3 (06:35→21:27)
[2017-10-08] MEDS: SODIUM CHLORIDE FLUSH 0.9% 10 ML SYRINGE IVP SCH ×3 (06:37→21:05)
[2017-10-08] MEDS: LEVOTHYROXINE 125 MCG TABLET PO SCH (06:52)
[2017-10-08] MEDS ORDERED: ALBUTEROL NEB 2.5 MG/3 ML INH PRN (07:06)
[2017-10-08] MEDS: APIXABAN 2.5 MG TABLET PO SCH ×2 (08:19→21:05)
[2017-10-08] MEDS: POLYETHYLENE GLYCOL 3350 17 GM PACKET PO SCH (08:19)
[2017-10-08] MEDS: ASCORBIC ACID CHEW 500 MG TABLET PO SCH (08:19)
[2017-10-08] MEDS: TOLTERODINE LA 2 MG CAPSULE PO SCH (08:19)
[2017-10-08] MEDS: buPROPion SR 150 MG TABLET PO SCH (08:19)
[2017-10-08] MEDS: CHOLECALCIFEROL 5,000 UNIT CAPSULE PO SCH (08:19)
[2017-10-08] MEDS ORDERED: FLUTICASONE NASAL SPRAY NAS PRN (11:32)
--- NOTE | 2017-10-08 18:32 | PROVIDER PROGRESS NOTE ---
Assessment/Plan - Problem List (1) Atrial fibrillation with RVR Assessment/Plan: I discussed potential etiology of his Afib: rheumatic valvular disease and borderline cardiomyopathy vs due to VINICIUS. Will continue present meds which are controlling his HR, watch for amira (as his Metoprolol caused HRs in the 30's in the past) and I will speak to his Airdox Fitter in am, if he hasn't converted to NSR by tomorrow am. Continue Eliquis for stroke prophylaxis. 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 (3) HTN (hypertension) Qualifiers: Hypertension type: essential hypertension Qualified Code(s): I10 - Essential (primary) hypertension Assessment/Plan: BP is controlled on Metoprolol dose only, other BP meds were stopped to allow the Bblocker to be used for HR control. (4) Cardiomyopathy Assessment/Plan: Probably due to rheumatic valve disease. Continue B-marie and may restart DINAH before DCh, if BP not too low. (5) VINICIUS on CPAP Assessment/Plan: Continue and may use CPAP here. - Current Meds Current Meds: Current Medications Generic Name Dose Route Start Last Admin Trade Name Freq PRN Reason Stop Dose Admin Apixaban 5 mg 10/07/17 21:00 10/08/17 08:19 Eliquis PO 5 mg BID JENI Administration Ascorbic Acid 2,000 mg 10/08/17 09:00 10/08/17 08:19 Vitamin C PO 1,000 mg DAILY JENI Administration Bupropion HCl 150 mg 10/08/17 09:00 10/08/17 08:19 Wellbutrin Sr PO 150 mg DAILY JENI Administration Cholecalciferol 5,000 unit 10/08/17 09:00 10/08/17 08:19 Vitamin D3 PO 5,000 unit DAILY JENI Administration Levothyroxine Sodium 125 mcg 10/08/17 07:00 10/08/17 06:52 Synthroid PO 125 mcg QDAC JENI Administration Metoprolol Tartrate 25 mg 10/07/17 22:00 10/08/17 14:46 Lopressor PO 25 mg Q8HR JENI Administration Polyethylene Glycol 17 gm 10/08/17 09:00 10/08/17 08:19 Miralax PO Not Given DAILY JENI Sodium Chloride 10 ml 10/08/17 01:00 10/08/17 08:19 Normal Saline Flush 0.9% IVP 10 ml 0100,[id number],1700 JENI Administration Tolterodine Tartrate 2 mg 10/08/17 09:00 10/08/17 08:19 Detrol La PO 2 mg DAILY JENI Administration - Lab Result Fish Bone Diagrams: 10/07/17 08:57 10/08/17 05:15 Subjective - Subjective Patient Reports: Other (No "racing palpitations but still feels something is not right.") Objective Vital Signs: Vital Signs - 24 hr 10/07/17 10/07/17 10/07/17 20:20 20:33 22:43 Temperature 36.5 C 36.6 C Heart Rate 89 Heart Rate [ 99 Brachial] Respiratory 16 16 Rate Blood Pressure 122/81 H 126/75 Blood Pressure 115/65 [Right Brachial artery] O2 Saturation 97 98 10/07/17 10/08/17 10/08/17 23:50 05:00 06:35 Temperature 36.5 C 36.5 C Heart Rate Heart Rate [ 86 85 Brachial] Respiratory 16 16 Rate Blood Pressure 108/65 Blood Pressure 110/80 108/65 [Right Brachial artery] O2 Saturation 96 95 10/08/17 10/08/17 10/08/17 07:23 12:51 14:14 Temperature 36.3 C L 36.3 C L Heart Rate Heart Rate [ 82 84 76 Brachial] Respiratory 16 20 Rate Blood Pressure Blood Pressure 110/72 106/67 103/70 [Right Brachial artery] O2 Saturation 98 97 10/08/17 10/08/17 14:43 16:49 Temperature 36.9 C Heart Rate Heart Rate [ 82 82 Brachial] Respiratory 24 Rate Blood Pressure Blood Pressure 122/73 112/69 [Right Brachial artery] O2 Saturation 96 Oxygen O2 Source Room air I&O (Last 24 Hrs): Intake and Output Totals x24h 10/06/17 10/07/17 10/08/17 23:59 23:59 23:59 Intake Total 1290 Balance 1290 General: Alert, Oriented x3 HEENT: Mucous membr. moist/pink Neck: Supple, No JVD, +2 carotid pulse wo bruit Neuro: Non Focal Cardiovascular: Other (Ireg, 1/6 systolic murmur at apex) Respiratory: No respiratory distress Abdomen: Soft, Other (Obese with pannus.) Extremities: Other (1+ pretibial edema with venpus stasis changes.) - Results Results: Laboratory Results WBC 5.3 x10^3/uL (4.8-10.8) 10/07/17 08:57 RBC 4.58 10^6/uL (4.70-6.10) L 10/07/17 08:57 Hgb 14.5 g/dL (14.0-18.0) 10/07/17 08:57 Hct 42.2 % (42.0-52.0) 10/07/17 08:57 MCV 92.0 fL (80.0-94.0) 10/07/17 08:57 MCH 31.6 pg (27.0-31.0) H 10/07/17 08:57 MCHC 34.4 g/dL (32.0-36.0) 10/07/17 08:57 RDW 13.0 % (12.0-15.0) 10/07/17 08:57 Plt Count 204 10^3/uL (130-450) 10/07/17 08:57 MPV 8.7 fL (7.4-11.4) 10/07/17 08:57 Neut # 3.8 10^3/uL (1.5-6.6) 10/07/17 08:57 Lymph # 0.7 10^3/uL (1.5-3.5) L 10/07/17 08:57 [place] # 0.5 10^3/uL (0.0-1.0) 10/07/17 08:57 Eos # 0.1 10^3/uL (0.0-0.7) 10/07/17 08:57 Baso # 0.1 10^3/uL (0.0-0.1) 10/07/17 08:57 Absolute Nucleated RBC 0.00 x10^3/uL 10/07/17 08:57 Nucleated RBC % 0.1 /100WBC 10/07/17 08:57 Sodium 139 mmol/L (135-145) 10/08/17 05:15 Potassium 3.8 mmol/L (3.5-5.0) 10/08/17 05:15 Chloride 107 mmol/L (101-111) 10/08/17 05:15 Carbon Dioxide 24 mmol/L (21-32) 10/08/17 05:15 Anion Gap 8.0 (6-13) 10/08/17 05:15 BUN 13 mg/dL (6-20) 10/08/17 05:15 Creatinine 1.2 mg/dL (0.6-1.2) 10/08/17 05:15 Estimated GFR (MDRD) 59 (>89) L 10/08/17 05:15 Glucose 92 mg/dL (70-100) 10/08/17 05:15 Glycated Hemoglobin 4.9 % (4.6-6.2) 10/07/17 08:57 Estim Average Glucose 94 (70-100) 10/07/17 08:57 Calcium 8.9 mg/dL (8.5-10.3) 10/08/17 05:15 Troponin I < 0.04 ng/mL (<0.49) 10/07/17 22:00 B-Natriuretic Peptide 25 pg/mL (5-100) 10/07/17 08:57 ABX Reporting Has patient been on IV antibiotics over the past 48 hours?: No
[2017-10-09] MEDS: SODIUM CHLORIDE FLUSH 0.9% 10 ML SYRINGE IVP SCH ×2 (00:01→09:07)
[2017-10-09] MEDS: METOPROLOL TARTRATE 50 MG TABLET PO SCH (06:31)
[2017-10-09] MEDS: LEVOTHYROXINE 125 MCG TABLET PO SCH (06:31)
[2017-10-09] MEDS: POLYETHYLENE GLYCOL 3350 17 GM PACKET PO SCH (09:07)
[2017-10-09] MEDS: APIXABAN 2.5 MG TABLET PO SCH (09:07)
[2017-10-09] MEDS: buPROPion SR 150 MG TABLET PO SCH (09:07)
[2017-10-09] MEDS: TOLTERODINE LA 2 MG CAPSULE PO SCH (09:07)
[2017-10-09] MEDS: ASCORBIC ACID CHEW 500 MG TABLET PO SCH (09:07)
[2017-10-09] MEDS: CHOLECALCIFEROL 5,000 UNIT CAPSULE PO SCH (09:07)
[2017-10-09] MEDS ORDERED: diltiaZEM CD 180 MG CAPSULE PO SCH (13:00)
--- NOTE | 2017-10-09 19:32 | Discharge Plan ---
Discharge Plan Disposition: Home, Self Care Condition: Stable Prescriptions: Apixaban [Eliquis] 5 mg PO BID #60 tablet diltiaZEM CD [Cardizem Cd] 180 mg PO DAILY #30 capsule Diet: Cardiac Activity Restrictions: Activity as Tolerated Shower Restrictions: No Driving Restrictions: No Instruction Topics: Stroke Prevent Live W Atrial Fib, Atrial Fibrillation, Rheumatic Fever, Mitral Insufficiency, Mitral Stenosis Additional Instructions or Follow Up instructions: Start taking the Cardizem CD every morning. Start taking the blood thinner Eliquis twice a day. Get refills from your PCP or Continuous Improvement Specialist. Resume all your other pre-hospital medications EXCEPT STOP TAKING the Aspirin and the Amlodipine. SEE YOUR [facility] NEXT WEEK. COME TO THE ER OR CALL 911 IF YOU HAVE SEVERE BLEEDING ON THE BLOOD THINNER OR LIGHTHEADEDNESS OR FAINTING ON THE CARDIZEM No Smoking: If you smoke, Please STOP! Call for help. Follow-up with: Siri Connell MD [Primary Care Provider] -
[2017-10-09 21:16] VITALS: BP 127/70
--- NOTE | 2017-10-13 11:41 | DISCHARGE SUMMARY ---
Physician: Malika Henriquez MD DATE OF ADMISSION: 10/07/2017 DATE OF DISCHARGE: 10/09/2017 HISTORY OF PRESENT ILLNESS: This is a 72-year-old white male with history of AFib 6 years ago on Coumadin for only a month according to the report, history of rheumatic fever as a child causing mild mitral regurgitation and stenosis, history of hypertension, sleep apnea and depression. The patient presented with palpitations which were just like his symptoms of AFib 6 years previously, and he presented to the emergency room. He had mild lightheadedness and weakness but no other symptoms such as shortness of breath or chest pain. The patient received IV procainamide in the ER, in attempt at pharmacologic cardioversion, and because of very rapid rates in the 180s, he actually underwent attempted elective cardioversion with monitored anesthesia in the ER with 3 attempts, which were not successful. He was then admitted for management of his AFib with RVR. HOSPITAL COURSE/DISCHARGE DIAGNOSES 1. Atrial fibrillation with rapid ventricular response. The patient's medications were adjusted for rate control, but he did not have chemical cardioversion. I reached out to his optometric coordinator's office of Dr. Denis, and spoke to the on-call optometric coordinator, Dr. Hernandez, who reviewed the chart as we were speaking. There had been a history of depression when he was on beta marie and also symptomatic bradycardia into the 30s when he was on a beta marie. Therefore, our management of rate control with beta marie was discontinued and he was put on Cardizem-CD 180 mg daily. It was determined that he would be discharged home, have an outpatient Holter ordered by his optometric coordinator's office, and follow up in the next week. The patient was advised that if he gets severe symptoms such as lightheadedness or syncope to present to the emergency room again or call 911. The patient was also started on new anticoagulation while here using Eliquis and he was advised that if bleeding should occur to return to the emergency room or call his doctor. This patient's free T4 was normal at 1.3, and the patient had troponins that were not detectable x2 (less than 0.04). 2. Rheumatic disease of the heart valve. An Echo was done here, which showed mild mitral regurgitation, no evidence of mitral stenosis or aortic stenosis, there was mild aortic regurgitation present. There was increase in left and right atrial sizes. Right ventricle was also enlarged, but had preserved function. The LV size was normal, but there was mild global hypokinesis with EF of 45-50%, a decrease from an Echo done 1 year previously when EF was 60%. For this reason of new decline in ejection fraction, cardiology followup is also advised. 3. Hypertension. The patient's blood pressure was controlled with medication adjustments. 4. Cardiomyopathy. Because of the Echo findings above, cardiology followup is advised. 5. Sleep apnea, on CPAP. The patient is compliant with this device. 6. Depression. The patient is stable on current medications. LABORATORY AND IMAGING: Reviewed and summarized above. ALLERGIES: HYDROCODONE. MEDICATIONS AT THE TIME OF DISCHARGE 1. Albuterol sulfate 2 puffs q.4 hours p.r.n. 2. Eliquis 5 mg b.i.d. 3. Vitamin C daily. 4. Bupropion 150 mg daily. 5. Chlorthalidone 25 mg daily. 6. Vitamin D3 daily. 7. Cardizem-CD 180 mg daily. 8. Lexapro 10 mg daily. 9. Flonase spray b.i.d. p.r.n. 10. Breo-Ellipta 1 puff daily. 11. Irbesartan 300 mg daily. 12. Levothyroxine 125 mcg daily. 13. [place]-3 tablet. 14. Ditropan-XL 10 mg daily. CONDITION AT DISCHARGE: Stable. PHYSICAL EXAMINATION AT DISCHARGE VITAL SIGNS: Blood pressure 127/70, pulse of 86 in AFib, afebrile, room air saturation 97%. HEENT: Unremarkable. NECK: No JVD or carotid bruits. CHEST: Clear. HEART: Sounds distant without audible murmur except possibly a 1/6 systolic murmur at the lower left sternal border. ABDOMEN: Obese with a pannus, nontender. EXTREMITIES: Had 1+ edema to the mid shins. No clubbing or cyanosis. NEUROLOGIC: Intact. FOLLOWUP: With his cardiology group within the next week as described above. CODE STATUS: FULL CODE. Time required to complete this entire discharge, review of chart, education of the patient, dictation, medication orders: 60 minutes. TD: 10/13/2017 00:19 [facility]
== END 2017-10-09 20:00 | disposition home or self-care (01) | DRG 309 ==
LOC: ED 08:28 → MS2 19:54
PROVIDERS: ADMIT Internal Medicine; ATTEND Internal Medicine
DX: I48.0 Paroxysmal atrial fibrillation (principal); Z68.41 Body mass index [BMI] 40.0-44.9, adult; G47.30 Sleep apnea, unspecified; I13.10 Hypertensive heart and chronic kidney disease without heart failure, with stage 1 through stage 4 chronic kidney disease, or unspecified chronic kidney disease; N18.9 Chronic kidney disease, unspecified; N28.9 Disorder of kidney and ureter, unspecified; F32.9 Major depressive disorder, single episode, unspecified; E03.9 Hypothyroidism, unspecified; I08.3 Combined rheumatic disorders of mitral, aortic and tricuspid valves; J44.9 Chronic obstructive pulmonary disease, unspecified; G47.33 Obstructive sleep apnea (adult) (pediatric); E66.9 Obesity, unspecified; R35.0 Frequency of micturition; Z87.442 Personal history of urinary calculi; Z79.82 Long term (current) use of aspirin; Z79.51 Long term (current) use of inhaled steroids; Z79.899 Other long term (current) drug therapy
CPT/HCPCS: 36415; 71045; 80048; 83036; 83880; 84439; 84484; 85025; 93005; 93306; 94761; 94770; 96365; 96366; 96375; 99285

== ENCOUNTER 2017-11-18 08:00 | Outpatient (CLI) | payer MEDICARE, BC ==
[2017-11-18 18:43] LABS: BASOPHILS % (AUTO) 0.6 %; EOSINOPHILS # (AUTO) 0.1 10^3/uL (0.0-0.7); EOSINOPHILS % (AUTO) 1.3 %; HGB - HEMOGLOBIN 14.2 g/dL (14.0-18.0); LYMPHOCYTES # (AUTO) 0.8 10^3/uL (1.5-3.5); LYMPHOCYTES % (AUTO) 14.7 %; MEAN CORPUSCULAR HEMOGLOBIN 32.1 pg (27.0-31.0); MEAN CORPUSCULAR VOLUME 94.2 fL (80.0-94.0); MEAN PLATELET VOLUME 8.8 fL (7.4-11.4); MONOCYTES # (AUTO) 0.5 10^3/uL (0.0-1.0); MONOCYTES % (AUTO) 9.6 %; NEUTROPHILS % (AUTO) 73.8 %; PLT - PLATELET COUNT 217 10^3/uL (130-450); RED BLOOD COUNT 4.44 10^6/uL (4.70-6.10); RED CELL DISTRIBUTION WIDTH 12.9 % (12.0-15.0); WHITE BLOOD COUNT 5.4 x10^3/uL (4.8-10.8)
[2017-11-18 18:51] LABS: ALBUMIN 4.5 g/dL (3.2-5.5); ALBUMIN/GLOBULIN RATIO 1.5 (1.0-2.2); BILIRUBIN,TOTAL 0.9 mg/dL (0.2-1.0); CALCIUM 9.3 mg/dL (8.5-10.3); CREATININE 1.4 mg/dL (0.6-1.2); TOTAL PROTEIN 7.5 g/dL (6.7-8.2)
[2017-11-18 19:15] LABS: HB2 TOTAL 15.3 g/dL; HEMOGLOBIN A1C 0.46 g/dL; HEMOGLOBIN A1C % 4.9 % (4.6-6.2)
== END 2017-11-18 08:01 | disposition home or self-care (01) ==
LOC: LAB.WCP 08:00
PROVIDERS: ATTEND Family Medicine
DX: I10 Essential (primary) hypertension (principal); E11.9 Type 2 diabetes mellitus without complications; Z12.5 Encounter for screening for malignant neoplasm of prostate; E03.9 Hypothyroidism, unspecified
CPT/HCPCS: 36415; 80053; 82043; 83036; 84443; 85025; G0103; 84153

== ENCOUNTER 2017-12-09 08:00 | Outpatient (CLI) | payer BC, MEDICARE ==
[2017-12-09 19:17] LABS: CALCIUM 9.1 mg/dL (8.5-10.3); CREATININE 1.3 mg/dL (0.6-1.2)
[2017-12-09 19:47] LABS: FOLATE 9.28 ng/mL (5.90 - >24.8)
== END 2017-12-09 08:01 | disposition home or self-care (01) ==
LOC: LAB.WCP 08:00
PROVIDERS: ATTEND Psychiatry & Neurology Psychiatry
DX: I10 Essential (primary) hypertension (principal); F32.9 Major depressive disorder, single episode, unspecified
CPT/HCPCS: 36415; 80048; 82306; 82607; 82746

== ENCOUNTER 2018-01-14 10:26 | Emergency (ER) | payer BC, MEDICARE ==
[2018-01-14] MEDS ORDERED: SODIUM CHLORIDE 0.9% 1,000 ML IV ONE (10:50)
[2018-01-14] MEDS ORDERED: diltiaZEM INJ 5 MG/ML VIAL IVP STA (10:50)
[2018-01-14] MEDS ORDERED: PROCAINAMIDE 1,000 MG/10 ML SYRINGE IV STA (10:51)
--- NOTE | 2018-01-14 10:54 | ED Physician Documentation ---
PD HPI CHEST PAIN - Stated complaint Stated Complaint: RAPID HR - History obtained from History obtained from: Patient - History of Present Illness Timing - onset: Last night (about 1 am - he was asleep and felt his heart rate going fast when he awoke this morning. He wears a watch heart rate monitor and it says his heart rate went to 130s at 1:30 am.) Timing - onset during: Sleep Timing - duration: Hours (9) Timing - details: Abrupt onset, Still present Quality: No: Pressure, Tightness Associated symptoms: Shortness of air, Palpitations. No: Nausea, Vomiting, Feeling faint / dizzy, General Weakness, Cough Similar symptoms before: Diagnosis (paroxysms of atrial fib - with prior hospitalization and treated with meds, drips and then cardioversion and remained in afib. It converted to NSR a few days later at home. Other time did convert with just slowing and meds.) Recently seen: Not recently seen Review of Systems Constitutional: denies: Fever, Chills Nose: denies: Rhinorrhea / runny nose, Congestion Throat: denies: Sore throat Cardiac: reports: Palpitations. denies: Chest pain / pressure, Pedal edema, Calf pain Respiratory: reports: Dyspnea (mild with activity this morning - has had that with the afib fast in the past.). denies: Cough, Wheezing GI: denies: Abdominal Pain, Nausea, Vomiting : denies: Dysuria, Frequency Musculoskeletal: denies: Neck pain, Back pain Neurologic: denies: Generalized weakness, Near syncope, Altered mental status PD PAST MEDICAL HISTORY - Past Medical History Cardiovascular: Hypertension, Atrial fibrillation, Murmur Respiratory: Sleep apnea, CPAP use Endocrine/Autoimmune: HyPOthyroidism GI: None : Frequency, Kidney stones HEENT: None Psych: None Musculoskeletal: None Derm: None - Past Surgical History Past Surgical History: Yes Ortho: Carpal Tunnel surgery HEENT: Cataracts - Present Medications Home Medications: Ambulatory Orders Medication Instructions Recorded Confirmed Irbesartan 300 mg PO DAILY 06/09/16 10/08/17 Levothyroxine [Synthroid] 125 mcg PO QDAC 06/09/16 10/08/17 Oxybutynin Chloride [Ditropan Xl] 10 mg PO DAILY 06/09/16 10/08/17 Albuterol Sulfate [Proair Hfa 2 puffs INH Q4H PRN 10/09/16 10/08/17 Inhaler] Chlorthalidone 25 mg ORAL DAILY 10/07/17 10/08/17 Escitalopram [Lexapro] 10 mg ORAL DAILY 10/07/17 10/08/17 Ascorbic Acid [Vitamin C] 1,000 mg PO DAILY 10/08/17 10/08/17 Bupropion HCl [Bupropion HCl Sr] 150 mg PO DAILY 10/08/17 10/08/17 Cholecalciferol (Vitamin D3) 1,000 unit PO DAILY 10/08/17 10/08/17 [Vitamin D3] Fluticasone [Flonase] 1 spray [place]HA BID PRN 10/08/17 10/08/17 Fluticasone/Vilanterol [Breo 1 puffs INH DAILY 10/08/17 10/08/17 Ellipta 200-25 Mcg INH] [place]-3 Fatty Acids/Fish Oil 1,000 mg PO DAILY 10/08/17 10/08/17 [[place]-3 Fish Oil 1,000 mg Sfgl] Apixaban [Eliquis] 5 mg PO BID #60 tablet 10/09/17 Diltiazem HCl 30 mg PO BID PRN #30 tablet 01/14/18 - Allergies Allergies/Adverse Reactions: Allergies Allergy/AdvReac Type Severity Reaction Status Date / Time hydrocodone bitartrate * AdvReac Intermediate Hallucinati Verified 10/09/16 18: 54 [From Vicodin] ons - Social History Does the pt smoke?: No Smoking Status: Never smoker Does the pt drink ETOH?: No Does the pt have substance abuse?: No - Family History Family history: reports: Non contributory - Immunizations Immunizations are current?: Yes - POLST Patient has POLST: No PD ED PE NORMAL - Vitals Vital signs reviewed: Yes - General General: Alert and oriented X 3, No acute distress, Well developed/nourished - HEENT HEENT: Moist mucous membranes, Pharynx benign - Neck Neck: Supple, no meningeal sign, No adenopathy, No JVD - Cardiac Cardiac: No rub. No: RRR (irregular and fast at about 120 rate) - Respiratory Respiratory: Clear bilaterally - Abdomen Abdomen: Soft, Non tender - Male Male : Deferred - Rectal Rectal: Deferred - Back Back: No CVA TTP - Derm Derm: Normal color, Warm and dry - Extremities Extremities: No deformity, No tenderness to palpate, Normal ROM s pain, No edema , No calf tenderness / cord - Neuro Neuro: Alert and oriented X 3, No motor deficit, Normal speech - Psych Psych: Normal mood, Normal affect Results - Vitals Vitals: Vital Signs - 24 hr 01/14/18 01/14/18 01/14/18 10:30 11:20 11:23 Temperature 36.3 C L Heart Rate 109 H 89 81 Respiratory 18 14 Rate Blood Pressure 106/66 105/79 88/65 L O2 Saturation 96 95 95 01/14/18 01/14/18 01/14/18 11:25 11:29 11:34 Temperature Heart Rate 77 71 84 Respiratory 15 14 Rate Blood Pressure 88/63 L 88/63 L 97/77 O2 Saturation 96 96 01/14/18 01/14/18 01/14/18 11:44 11:52 12:04 Temperature Heart Rate 86 86 81 Respiratory 15 14 12 Rate Blood Pressure 93/72 96/70 94/63 O2 Saturation 95 94 95 01/14/18 01/14/18 01/14/18 12:24 12:43 13:20 Temperature Heart Rate 77 88 93 Respiratory 14 15 16 Rate Blood Pressure 98/65 92/70 93/67 O2 Saturation 95 97 97 01/14/18 01/14/18 13:52 14:08 Temperature 36.5 C Heart Rate 98 91 Respiratory 13 16 Rate Blood Pressure 114/77 99/61 O2 Saturation 96 97 Oxygen O2 Source Room air - Labs Labs: Laboratory Tests 01/14/18 01/14/18 01/14/18 11:00 11:00 11:00 WBC 6.8 RBC 4.68 L Hgb 14.6 Hct 42.5 MCV 90.7 MCH 31.1 H MCHC 34.3 RDW 13.3 Plt Count 193 MPV 8.7 Neut # (Auto) 5.1 Lymph # (Auto) 0.9 L [place] # (Auto) 0.7 Eos # (Auto) 0.1 Baso # (Auto) 0.1 Absolute Nucleated RBC 0.00 Nucleated RBC % 0.0 Sodium 133 L Potassium 4.3 Chloride 103 Carbon Dioxide 23 Anion Gap 7.0 BUN 28 H Creatinine 1.2 Estimated GFR (MDRD) 59 L Glucose 117 H Calcium 9.0 Magnesium 2.0 Total Bilirubin 1.0 AST 23 ALT 21 Alkaline Phosphatase 75 B-Natriuretic Peptide 83 Total Protein 7.2 Albumin 4.6 Globulin 2.6 Albumin/Globulin Ratio 1.8 Lipase 28 PD MEDICAL DECISION MAKING - ED course Complexity details: reviewed results, re-evaluated patient (still afib, but rate controlled after meds. BP transiently low but improved with fluids. Patient prefers going home and giving it time to convert and did not want cardioversion. ), considered differential, d/w patient, d/w product safety consultant [facility] to maintain or increase diltiazem and follow up in few days. I then talked with patient and he has good supply of the Cartia XT and resting HR too slow with higher dose when in NSR. So patient and I concurred on staying with the 180mg Cartia XT and adding short acting diltiazem PRN heart rate fast until converts. ) - Sepsis Event Vital Signs: Vital Signs - 24 hr 01/14/18 01/14/18 01/14/18 10:30 11:20 11:23 Temperature 36.3 C L Heart Rate 109 H 89 81 Respiratory 18 14 Rate Blood Pressure 106/66 105/79 88/65 L O2 Saturation 96 95 95 01/14/18 01/14/18 01/14/18 11:25 11:29 11:34 Temperature Heart Rate 77 71 84 Respiratory 15 14 Rate Blood Pressure 88/63 L 88/63 L 97/77 O2 Saturation 96 96 01/14/18 01/14/18 01/14/18 11:44 11:52 12:04 Temperature Heart Rate 86 86 81 Respiratory 15 14 12 Rate Blood Pressure 93/72 96/70 94/63 O2 Saturation 95 94 95 01/14/18 01/14/18 01/14/18 12:24 12:43 13:20 Temperature Heart Rate 77 88 93 Respiratory 14 15 16 Rate Blood Pressure 98/65 92/70 93/67 O2 Saturation 95 97 97 01/14/18 01/14/18 13:52 14:08 Temperature 36.5 C Heart Rate 98 91 Respiratory 13 16 Rate Blood Pressure 114/77 99/61 O2 Saturation 96 97 Oxygen O2 Source Room air Departure - Departure Disposition: 01 Home, Self Care Clinical Impression: Paroxysmal atrial fibrillation with rapid ventricular response Condition: Stable Record reviewed to determine appropriate education?: Yes Instructions: ED Afib Follow-Up: Siri Connell MD [Primary Care Provider] - Baljinder Finnegan MD [Physician No Access] - Prescriptions: Diltiazem HCl 30 mg PO BID PRN #30 tablet PRN Reason: Tachycardia Comments: Continue current medications. Add dose Diltiazem if needed for heart rate control. Drink lots of fluids. Follow-up with cardiology in the next several days if not improved. Return if worsening symptoms. Discharge Date/Time: 01/14/18 14:15
[2018-01-14 11:11] LABS: BASOPHILS # (AUTO) 0.1 10^3/uL (0.0-0.1); BASOPHILS % (AUTO) 0.7 %; EOSINOPHILS # (AUTO) 0.1 10^3/uL (0.0-0.7); EOSINOPHILS % (AUTO) 0.8 %; HGB - HEMOGLOBIN 14.6 g/dL (14.0-18.0); LYMPHOCYTES # (AUTO) 0.9 10^3/uL (1.5-3.5); LYMPHOCYTES % (AUTO) 13.5 %; MEAN CORPUSCULAR HEMOGLOBIN 31.1 pg (27.0-31.0); MEAN CORPUSCULAR HGB CONC 34.3 g/dL (32.0-36.0); MEAN CORPUSCULAR VOLUME 90.7 fL (80.0-94.0); MEAN PLATELET VOLUME 8.7 fL (7.4-11.4); MONOCYTES # (AUTO) 0.7 10^3/uL (0.0-1.0); MONOCYTES % (AUTO) 9.6 %; NEUTROPHILS # (AUTO) 5.1 10^3/uL (1.5-6.6); NEUTROPHILS % (AUTO) 75.4 %; PLT - PLATELET COUNT 193 10^3/uL (130-450); RED BLOOD COUNT 4.68 10^6/uL (4.70-6.10); RED CELL DISTRIBUTION WIDTH 13.3 % (12.0-15.0); WHITE BLOOD COUNT 6.8 x10^3/uL (4.8-10.8)
[2018-01-14 11:24] LABS: ALBUMIN 4.6 g/dL (3.2-5.5); ALBUMIN/GLOBULIN RATIO 1.8 (1.0-2.2); CREATININE 1.2 mg/dL (0.6-1.2); TOTAL PROTEIN 7.2 g/dL (6.7-8.2)
[2018-01-14] MEDS ORDERED: SODIUM CHLORIDE 0.9% 500 ML IV ONE (13:14)
[2018-01-14 14:08] VITALS: BP 99/61
== END 2018-01-14 14:15 | disposition home or self-care (01) ==
LOC: ED 10:26
DX: I48.0 Paroxysmal atrial fibrillation (principal); I10 Essential (primary) hypertension; Z79.01 Long term (current) use of anticoagulants
CPT/HCPCS: 36415; 80053; 83690; 83735; 83880; 85025; 93005; 96374; 99284; J2690

== ENCOUNTER 2018-01-22 11:13 | Emergency (ER) | payer MEDICARE ==
[2018-01-22] MEDS ORDERED: SODIUM CHLORIDE 0.9% 1,000 ML IV ONE (11:47)
[2018-01-22 11:58] LABS: BASOPHILS % (AUTO) 0.5 %; EOSINOPHILS # (AUTO) 0.1 10^3/uL (0.0-0.7); EOSINOPHILS % (AUTO) 1.3 %; HGB - HEMOGLOBIN 14.9 g/dL (14.0-18.0); LYMPHOCYTES # (AUTO) 0.9 10^3/uL (1.5-3.5); MEAN CORPUSCULAR HEMOGLOBIN 31.8 pg (27.0-31.0); MEAN CORPUSCULAR VOLUME 90.8 fL (80.0-94.0); MEAN PLATELET VOLUME 9.2 fL (7.4-11.4); MONOCYTES # (AUTO) 0.5 10^3/uL (0.0-1.0); MONOCYTES % (AUTO) 7.7 %; NEUTROPHILS # (AUTO) 4.8 10^3/uL (1.5-6.6); NEUTROPHILS % (AUTO) 76.5 %; PLT - PLATELET COUNT 205 10^3/uL (130-450); RED BLOOD COUNT 4.69 10^6/uL (4.70-6.10); RED CELL DISTRIBUTION WIDTH 13.2 % (12.0-15.0); WHITE BLOOD COUNT 6.3 x10^3/uL (4.8-10.8)
--- NOTE | 2018-01-22 12:00 | ED Physician Documentation ---
History of Present Illness - Stated complaint Stated Complaint: DIZZY/LBP - Chief complaint Chief Complaint: Cardiac - History obtained from History obtained from: Patient, Family - History of Present Illness Timing: How many weeks ago (1) - Additonal information Additional information: 72-year-old male with a history of intermittent atrial fibrillation with rapid ventricular response has developed lightheadedness and dizziness over the past week. Went into see his physician today and was sent to the emergency department with hypotension and atrial fibrillation with rapid ventricular response. He has had had a similar incident of A. fib with rapid ventricular response 8 days ago and at that time cardioversion failed. He did have rate control. Review of Systems Constitutional: reports: Sweats. denies: Fever Eyes: denies: Decreased vision Ears: denies: Ear pain Nose: denies: Rhinorrhea / runny nose, Congestion Throat: denies: Sore throat Cardiac: reports: Chest pain / pressure, Palpitations. denies: Pedal edema, Calf pain Respiratory: reports: Dyspnea. denies: Cough, Wheezing GI: denies: Abdominal Pain, Nausea, Vomiting : denies: Dysuria, Frequency Skin: denies: Rash Musculoskeletal: denies: Neck pain, Back pain, Extremity pain PD PAST MEDICAL HISTORY - Past Medical History Cardiovascular: Hypertension, Atrial fibrillation, Murmur Respiratory: Sleep apnea, CPAP use Endocrine/Autoimmune: HyPOthyroidism GI: None : Frequency, Kidney stones HEENT: None Psych: None Musculoskeletal: None Derm: None - Past Surgical History Past Surgical History: Yes Ortho: Carpal Tunnel surgery HEENT: Cataracts - Present Medications Home Medications: Ambulatory Orders Medication Instructions Recorded Confirmed Irbesartan 300 mg PO DAILY 06/09/16 10/08/17 Levothyroxine [Synthroid] 125 mcg PO QDAC 06/09/16 10/08/17 Oxybutynin Chloride [Ditropan Xl] 10 mg PO DAILY 06/09/16 10/08/17 Albuterol Sulfate [Proair Hfa 2 puffs INH Q4H PRN 10/09/16 10/08/17 Inhaler] Chlorthalidone 25 mg ORAL DAILY 10/07/17 10/08/17 Escitalopram [Lexapro] 10 mg ORAL DAILY 10/07/17 10/08/17 Ascorbic Acid [Vitamin C] 1,000 mg PO DAILY 10/08/17 10/08/17 Bupropion HCl [Bupropion HCl Sr] 150 mg PO DAILY 10/08/17 10/08/17 Cholecalciferol (Vitamin D3) 1,000 unit PO DAILY 10/08/17 10/08/17 [Vitamin D3] Fluticasone [Flonase] 1 spray MUSTAPHA BID PRN 10/08/17 10/08/17 Fluticasone/Vilanterol [Breo 1 puffs INH DAILY 10/08/17 10/08/17 Ellipta 200-25 Mcg INH] [place]-3 Fatty Acids/Fish Oil 1,000 mg PO DAILY 10/08/17 10/08/17 [[place]-3 Fish Oil 1,000 mg Sfgl] Apixaban [Eliquis] 5 mg PO BID #60 tablet 10/09/17 Diltiazem HCl 30 mg PO BID PRN #30 tablet 01/14/18 - Allergies Allergies/Adverse Reactions: Allergies Allergy/AdvReac Type Severity Reaction Status Date / Time hydrocodone bitartrate * AdvReac Intermediate Hallucinati Verified 10/09/16 18: 54 [From Vicodin] ons - Social History Does the pt smoke?: No Smoking Status: Never smoker Does the pt drink ETOH?: No Does the pt have substance abuse?: No - Immunizations Immunizations are current?: Yes - POLST Patient has POLST: No PD ED PE NORMAL - Vitals Vital signs reviewed: Yes (hypotensive ) - General General: Alert and oriented X 3, No acute distress, Well developed/nourished - HEENT HEENT: Atraumatic, PERRL, EOMI - Neck Neck: Supple, no meningeal sign, No bony TTP - Cardiac Cardiac: No murmur, Other (rapid irregularly irregular rate) - Respiratory Respiratory: No respiratory distress, Clear bilaterally - Abdomen Abdomen: Soft, Non tender - Back Back: No CVA TTP, No spinal TTP - Derm Derm: Normal color, Warm and dry, No rash - Extremities Extremities: No deformity, No edema - Neuro Neuro: Alert and oriented X 3, quantitative researcher 2-12 intact, No motor deficit, No sensory deficit, Normal speech Eye Opening: Spontaneous Motor: Obeys Commands Verbal: Oriented GCS Score: 15 - Psych Psych: Normal mood, Normal affect Results - Vitals Vitals: Vital Signs - 24 hr 01/22/18 01/22/18 01/22/18 11:27 11:52 12:36 Temperature 36.4 C L Heart Rate 78 97 95 Respiratory 18 18 15 Rate Blood Pressure 86/60 L 106/65 105/72 O2 Saturation 100 96 94 01/22/18 01/22/18 01/22/18 13:00 13:30 13:34 Temperature Heart Rate 81 82 82 Respiratory 16 16 16 Rate Blood Pressure 102/74 101/73 92/65 O2 Saturation 97 96 96 01/22/18 01/22/18 01/22/18 13:39 13:43 13:46 Temperature Heart Rate 62 64 58 L Respiratory 16 16 16 Rate Blood Pressure 90/62 90/61 99/68 O2 Saturation 97 98 96 01/22/18 01/22/18 01/22/18 13:59 14:09 14:43 Temperature Heart Rate 67 67 88 Respiratory 14 16 16 Rate Blood Pressure 98/63 98/66 106/73 O2 Saturation 98 95 94 01/22/18 01/22/18 01/22/18 15:05 15:21 16:14 Temperature Heart Rate 88 83 79 Respiratory 14 16 14 Rate Blood Pressure 85/75 L 101/76 94/68 O2 Saturation 98 98 97 01/22/18 16:16 Temperature Heart Rate Respiratory Rate Blood Pressure 106/85 H O2 Saturation Oxygen O2 Source Room air - EKG (time done) 1137 Rate: Rate (enter#) (110) Rhythm: Atrial fibrillation [place]: LAD Intervals: Prolonged QT Other comments: Other comments (early transition) Compare to prior EKG: Unchanged from prior EKG (01-14-18) Computer interpretation: Agree with computer - Labs Labs: Laboratory Tests 01/22/18 01/22/18 01/22/18 11:40 11:40 11:40 WBC 6.3 RBC 4.69 L Hgb 14.9 Hct 42.6 MCV 90.8 MCH 31.8 H MCHC 35.0 RDW 13.2 Plt Count 205 MPV 9.2 Neut # (Auto) 4.8 Lymph # (Auto) 0.9 L [place] # (Auto) 0.5 Eos # (Auto) 0.1 Baso # (Auto) 0.0 Absolute Nucleated RBC 0.00 Nucleated RBC % 0.0 Sodium 135 Potassium 4.1 Chloride 103 Carbon Dioxide 22 Anion Gap 10.0 BUN 22 H Creatinine 1.2 Estimated GFR (MDRD) 59 L Glucose 109 H Lactic Acid Calcium 8.9 Total Bilirubin 1.3 H AST 24 ALT 20 Alkaline Phosphatase 79 Troponin I < 0.04 Total Protein 7.3 Albumin 4.3 Globulin 3.0 Albumin/Globulin Ratio 1.4 Lipase 33 TSH Urine Color Urine Clarity Urine pH Ur Specific [place] Urine Protein Urine Glucose (UA) Urine Ketones Urine Occult Blood Urine Nitrite Urine Bilirubin Urine Urobilinogen Ur Leukocyte Esterase Ur Microscopic Review Urine Culture Comments 01/22/18 01/22/18 01/22/18 11:40 11:59 15:20 WBC RBC Hgb Hct MCV MCH MCHC RDW Plt Count MPV Neut # (Auto) Lymph # (Auto) [place] # (Auto) Eos # (Auto) Baso # (Auto) Absolute Nucleated RBC Nucleated RBC % Sodium Potassium Chloride Carbon Dioxide Anion Gap BUN Creatinine Estimated GFR (MDRD) Glucose Lactic Acid 1.7 Calcium Total Bilirubin AST ALT Alkaline Phosphatase Troponin I Total Protein Albumin Globulin Albumin/Globulin Ratio Lipase TSH 3.28 Urine Color YELLOW Urine Clarity CLEAR Urine pH 6.5 Ur Specific [place] 1.010 Urine Protein NEGATIVE Urine Glucose (UA) NEGATIVE Urine Ketones NEGATIVE Urine Occult Blood NEGATIVE Urine Nitrite NEGATIVE Urine Bilirubin NEGATIVE Urine Urobilinogen 0.2 (NORMAL) Ur Leukocyte Esterase NEGATIVE Ur Microscopic Review NOT INDICATED Urine Culture Comments NOT INDICATED Procedures - IVC sono (time) 1140 Bedside IVC sono: IVC measures (cm) (1.13), IVC collapsed c insp (cm) (complete) , Dehydration (est 1.5 liter deficit) PD MEDICAL DECISION MAKING - ED course Complexity details: reviewed old records, reviewed results, re-evaluated patient , considered differential, d/w patient, d/w family ED course: 72-year-old male with history of intermittent atrial fibrillation has atrial fibrillation with rapid ventricular response and comes into the emergency department with a systolic blood pressure in the 70 range. After he is laying supine his blood pressure raises up to over 100 and on evaluation with interrogation the inferior vena cava he does appear significantly dehydrated. His heart rate is about 120 on arrival and he is administered intravenous saline to correct this prior to attempting rate control. With 2 L of saline we are able to get his heart rate to around 100. Following that we administered diltiazem 20 mg intravenously and he has reduction in his heart rate into the 70s and he also has reduction in his blood pressure again associated with the use of the diltiazem. He is able to stand with the bed now with out developing acute dizziness. He is able to provide a urine specimen. His workup indicates that he was dehydrated and had atrial fibrillation with rapid ventricular response and he remains in atrial fibrillation with rate control and normalization of his volume. His symptoms are improved. He does have follow- up with a window framer in 1 week. - Sepsis Event Vital Signs: Vital Signs - 24 hr 01/22/18 01/22/18 01/22/18 11:27 11:52 12:36 Temperature 36.4 C L Heart Rate 78 97 95 Respiratory 18 18 15 Rate Blood Pressure 86/60 L 106/65 105/72 O2 Saturation 100 96 94 01/22/18 01/22/18 01/22/18 13:00 13:30 13:34 Temperature Heart Rate 81 82 82 Respiratory 16 16 16 Rate Blood Pressure 102/74 101/73 92/65 O2 Saturation 97 96 96 01/22/18 01/22/18 01/22/18 13:39 13:43 13:46 Temperature Heart Rate 62 64 58 L Respiratory 16 16 16 Rate Blood Pressure 90/62 90/61 99/68 O2 Saturation 97 98 96 01/22/18 01/22/18 01/22/18 13:59 14:09 14:43 Temperature Heart Rate 67 67 88 Respiratory 14 16 16 Rate Blood Pressure 98/63 98/66 106/73 O2 Saturation 98 95 94 01/22/18 01/22/18 01/22/18 15:05 15:21 16:14 Temperature Heart Rate 88 83 79 Respiratory 14 16 14 Rate Blood Pressure 85/75 L 101/76 94/68 O2 Saturation 98 98 97 01/22/18 16:16 Temperature Heart Rate Respiratory Rate Blood Pressure 106/85 H O2 Saturation Oxygen O2 Source Room air Departure - Departure Disposition: 01 Home, Self Care Clinical Impression: Atrial fibrillation with RVR, Dehydration Condition: Stable Instructions: Atrial Fibrillation Dc, ED Dehydration Follow-Up: Siri Connell MD [Primary Care Provider] - Francisco Ortez MD [Physician No Access] - Discharge Date/Time: 01/22/18 16:23
[2018-01-22 12:13] LABS: ALBUMIN 4.3 g/dL (3.2-5.5); ALBUMIN/GLOBULIN RATIO 1.4 (1.0-2.2); BILIRUBIN,TOTAL 1.3 mg/dL (0.2-1.0); CALCIUM 8.9 mg/dL (8.5-10.3); CREATININE 1.2 mg/dL (0.6-1.2); TOTAL PROTEIN 7.3 g/dL (6.7-8.2)
[2018-01-22] MEDS ORDERED: diltiaZEM INJ 5 MG/ML VIAL IVP STA (13:18)
[2018-01-22 15:27] LABS: BILIRUBIN,URINE NEGATIVE (NEGATIVE); GLUCOSE, URINE (UA) NEGATIVE (NEGATIVE); KETONES,URINE (UA) NEGATIVE (NEGATIVE); LEUKOCYTE ESTERASE, URINE NEGATIVE (NEGATIVE); NITRITE,URINE NEGATIVE (NEGATIVE); OCCULT BLOOD,URINE NEGATIVE (NEGATIVE); PH,URINE 6.5 PH (5.0-7.5); PROTEIN,URINE NEGATIVE (NEGATIVE); UROBILINOGEN,URINE 0.2 (NORMAL) E.U./dL (NORMAL)
[2018-01-22 15:37] LABS: CLARITY,URINE CLEAR (CLEAR)
[2018-01-22 16:16] VITALS: BP 106/85
== END 2018-01-22 16:23 | disposition home or self-care (01) ==
LOC: ED 11:13
DX: I48.91 Unspecified atrial fibrillation (principal); I45.81 Long QT syndrome; E86.0 Dehydration; I10 Essential (primary) hypertension
CPT/HCPCS: 36415; 80053; 81001; 81003; 83605; 83690; 84443; 84484; 85025; 87086; 93005; 96361; 96374; 99284; 99285

== ENCOUNTER 2018-02-17 10:39 | Outpatient (CLI) | payer MEDICARE ==
[2018-02-17 13:00] LABS: BASOPHILS % (AUTO) 0.6 %; EOSINOPHILS # (AUTO) 0.1 10^3/uL (0.0-0.7); EOSINOPHILS % (AUTO) 1.2 %; HGB - HEMOGLOBIN 15.1 g/dL (14.0-18.0); LYMPHOCYTES # (AUTO) 0.9 10^3/uL (1.5-3.5); LYMPHOCYTES % (AUTO) 18.5 %; MEAN CORPUSCULAR HEMOGLOBIN 31.5 pg (27.0-31.0); MEAN CORPUSCULAR HGB CONC 34.7 g/dL (32.0-36.0); MEAN CORPUSCULAR VOLUME 90.7 fL (80.0-94.0); MEAN PLATELET VOLUME 9.1 fL (7.4-11.4); MONOCYTES # (AUTO) 0.4 10^3/uL (0.0-1.0); MONOCYTES % (AUTO) 9.1 %; NEUTROPHILS # (AUTO) 3.4 10^3/uL (1.5-6.6); NEUTROPHILS % (AUTO) 70.6 %; PLT - PLATELET COUNT 183 10^3/uL (130-450); RED CELL DISTRIBUTION WIDTH 13.2 % (12.0-15.0); WHITE BLOOD COUNT 4.9 x10^3/uL (4.8-10.8)
[2018-02-17 13:56] LABS: ALBUMIN 4.9 g/dL (3.2-5.5); ALBUMIN/GLOBULIN RATIO 1.8 (1.0-2.2); BILIRUBIN,TOTAL 1.1 mg/dL (0.2-1.0); CALCIUM 9.2 mg/dL (8.5-10.3); CREATININE 1.4 mg/dL (0.6-1.2); TOTAL PROTEIN 7.6 g/dL (6.7-8.2)
[2018-02-17 13:59] LABS: HB2 TOTAL 16.4 g/dL; HEMOGLOBIN A1C 0.5 g/dL; HEMOGLOBIN A1C % 4.9 % (4.6-6.2)
== END 2018-02-17 10:40 | disposition home or self-care (01) ==
LOC: LAB.WCP 10:39
PROVIDERS: ATTEND Family Medicine
DX: I10 Essential (primary) hypertension (principal); E11.9 Type 2 diabetes mellitus without complications; E03.9 Hypothyroidism, unspecified
CPT/HCPCS: 36415; 80053; 83036; 84443; 85025

== ENCOUNTER → 2018-03-26 | Outpatient (CLI) | payer MEDICARE ==
[2018-03-26 18:59] LABS: CALCIUM 8.9 mg/dL (8.5-10.3); CREATININE 1.3 mg/dL (0.6-1.2)
== END ==
LOC: LAB.WCP 08:00
PROVIDERS: ATTEND Family Medicine
DX: I10 Essential (primary) hypertension (principal)
CPT/HCPCS: 36415; 80048

== ENCOUNTER 2018-04-06 14:26 | Outpatient (CLI) | payer MEDICARE ==
[2018-04-06 18:54] LABS: BASOPHILS % (AUTO) 0.4 %; EOSINOPHILS # (AUTO) 0.1 10^3/uL (0.0-0.7); EOSINOPHILS % (AUTO) 1.4 %; HGB - HEMOGLOBIN 14.5 g/dL (14.0-18.0); LYMPHOCYTES % (AUTO) 16.5 %; MEAN CORPUSCULAR HEMOGLOBIN 30.7 pg (27.0-31.0); MEAN CORPUSCULAR HGB CONC 33.5 g/dL (32.0-36.0); MEAN CORPUSCULAR VOLUME 91.4 fL (80.0-94.0); MEAN PLATELET VOLUME 9.1 fL (7.4-11.4); MONOCYTES # (AUTO) 0.5 10^3/uL (0.0-1.0); MONOCYTES % (AUTO) 8.8 %; NEUTROPHILS # (AUTO) 4.3 10^3/uL (1.5-6.6); NEUTROPHILS % (AUTO) 72.9 %; PLT - PLATELET COUNT 190 10^3/uL (130-450); RED BLOOD COUNT 4.72 10^6/uL (4.70-6.10); RED CELL DISTRIBUTION WIDTH 13.5 % (12.0-15.0); WHITE BLOOD COUNT 5.9 x10^3/uL (4.8-10.8)
[2018-04-06 19:30] LABS: ALBUMIN 4.3 g/dL (3.2-5.5); ALBUMIN/GLOBULIN RATIO 1.7 (1.0-2.2); BILIRUBIN,TOTAL 1.1 mg/dL (0.2-1.0); CALCIUM 8.7 mg/dL (8.5-10.3); CREATININE 1.2 mg/dL (0.6-1.2); TOTAL PROTEIN 6.8 g/dL (6.7-8.2)
== END 2018-04-06 14:27 | disposition home or self-care (01) ==
LOC: LAB.WCP 14:26
PROVIDERS: ATTEND Family Medicine
DX: R10.13 Epigastric pain (principal)
CPT/HCPCS: 36415; 80053; 82150; 83690; 85025

== ENCOUNTER 2018-05-19 12:10 | Outpatient (CLI) | payer MEDICARE ==
[2018-05-19 19:58] LABS: BASOPHILS # (AUTO) 0.1 10^3/uL (0.0-0.1); BASOPHILS % (AUTO) 1.5 %; EOSINOPHILS # (AUTO) 0.1 10^3/uL (0.0-0.7); EOSINOPHILS % (AUTO) 1.7 %; LYMPHOCYTES % (AUTO) 17.3 %; MEAN CORPUSCULAR HEMOGLOBIN 30.8 pg (27.0-31.0); MEAN CORPUSCULAR HGB CONC 33.2 g/dL (32.0-36.0); MEAN CORPUSCULAR VOLUME 92.8 fL (80.0-94.0); MEAN PLATELET VOLUME 9.2 fL (7.4-11.4); MONOCYTES # (AUTO) 0.4 10^3/uL (0.0-1.0); MONOCYTES % (AUTO) 7.3 %; NEUTROPHILS % (AUTO) 72.2 %; PLT - PLATELET COUNT 203 10^3/uL (130-450); RED BLOOD COUNT 4.87 10^6/uL (4.70-6.10); RED CELL DISTRIBUTION WIDTH 13.5 % (12.0-15.0); WHITE BLOOD COUNT 5.5 x10^3/uL (4.8-10.8)
[2018-05-19 20:22] LABS: HB2 TOTAL 15.5 g/dL; HEMOGLOBIN A1C 0.5 g/dL; HEMOGLOBIN A1C % 5.1 % (4.6-6.2)
[2018-05-19 21:03] LABS: ALBUMIN 4.6 g/dL (3.2-5.5); ALBUMIN/GLOBULIN RATIO 1.6 (1.0-2.2); CALCIUM 8.9 mg/dL (8.5-10.3); CREATININE 1.1 mg/dL (0.6-1.2); TOTAL PROTEIN 7.4 g/dL (6.7-8.2)
== END 2018-05-19 23:59 | disposition home or self-care (01) ==
LOC: LAB.WCP 12:10
PROVIDERS: ATTEND Family Medicine
DX: I10 Essential (primary) hypertension (principal); E11.9 Type 2 diabetes mellitus without complications; Z12.5 Encounter for screening for malignant neoplasm of prostate
CPT/HCPCS: 36415; 80053; 83036; 84153; 85025

== ENCOUNTER 2018-06-06 12:33 | Emergency (ER) | payer MEDICARE ==
[2018-06-06] MEDS ORDERED: diltiaZEM INJ 5 MG/ML VIAL IVP STA (12:49)
[2018-06-06 13:03] LABS: BASOPHILS % (AUTO) 0.6 %; EOSINOPHILS # (AUTO) 0.1 10^3/uL (0.0-0.7); EOSINOPHILS % (AUTO) 1.8 %; HGB - HEMOGLOBIN 17.3 g/dL (14.0-18.0); LYMPHOCYTES % (AUTO) 14.8 %; MEAN CORPUSCULAR HEMOGLOBIN 31.2 pg (27.0-31.0); MEAN CORPUSCULAR VOLUME 89.2 fL (80.0-94.0); MEAN PLATELET VOLUME 8.7 fL (7.4-11.4); MONOCYTES # (AUTO) 0.7 10^3/uL (0.0-1.0); NEUTROPHILS # (AUTO) 4.7 10^3/uL (1.5-6.6); NEUTROPHILS % (AUTO) 71.8 %; PLT - PLATELET COUNT 239 10^3/uL (130-450); RED BLOOD COUNT 5.55 10^6/uL (4.70-6.10); RED CELL DISTRIBUTION WIDTH 13.8 % (12.0-15.0); WHITE BLOOD COUNT 6.5 x10^3/uL (4.8-10.8)
[2018-06-06 13:20] LABS: ALBUMIN 4.4 g/dL (3.2-5.5); ALBUMIN/GLOBULIN RATIO 1.4 (1.0-2.2); CALCIUM 9.2 mg/dL (8.5-10.3); CREATININE 1.2 mg/dL (0.6-1.2); TOTAL PROTEIN 7.5 g/dL (6.7-8.2)
--- NOTE | 2018-06-06 13:23 | ED Physician Documentation ---
History of Present Illness - Stated complaint Stated Complaint: RAPID HR - Chief complaint Chief Complaint: Cardiac - History obtained from History obtained from: Patient, Family () - History of Present Illness Timing: Yesterday - Treatment prior to arrival Treatment prior to arrival: diltiazem 30 mg orally. - Additonal information Additional information: The patient is a 72-year-old male was history of paroxysmal atrial fibrillation, who presents with rapid heart rate that started yesterday morning about 3 AM. H e counted his heart rate at 113. he normally takes Multaq, 400 mg twice daily.with the onset of his recurrent atrial fibrillation, he started taking diltiazem yesterday in addition to Multaq. He took 30 mg tablets of diltiazem twice yesterday, and another dosage this morning. He presents to the emergency department now because his heart rate remains faster than 100 bpm. He denies any associated chest pain, shortness of breath, nausea or vomiting. He did have mild lightheadedness earlier today. He has history of similar symptoms in the past, and is anticoagulated on Eliquis. He was seen here in December 2017 with similar symptoms, and improved with IV diltiazem and normal saline. Review of Systems Constitutional: denies: Fever Ears: denies: Tinnitus/ringing Nose: denies: Congestion Throat: denies: Sore throat Cardiac: reports: Palpitations. denies: Chest pain / pressure Respiratory: denies: Dyspnea, Cough GI: denies: Abdominal Pain, Nausea, Vomiting : denies: Dysuria Skin: denies: Rash Musculoskeletal: denies: Extremity swelling Neurologic: denies: Focal weakness, Numbness, Headache PD PAST MEDICAL HISTORY - Past Medical History Cardiovascular: Hypertension, Atrial fibrillation, Murmur Respiratory: Sleep apnea, CPAP use Endocrine/Autoimmune: HyPOthyroidism GI: None : Frequency, Kidney stones HEENT: None Psych: None Musculoskeletal: None Derm: None - Past Surgical History Past Surgical History: Yes Ortho: Carpal Tunnel surgery HEENT: Cataracts - Present Medications Home Medications: Ambulatory Orders Medication Instructions Recorded Confirmed Irbesartan 300 mg PO DAILY 06/09/16 10/08/17 Levothyroxine [Synthroid] 125 mcg PO QDAC 06/09/16 10/08/17 Oxybutynin Chloride [Ditropan Xl] 10 mg PO DAILY 06/09/16 10/08/17 Albuterol Sulfate [Proair Hfa 2 puffs INH Q4H PRN 10/09/16 10/08/17 Inhaler] Chlorthalidone 25 mg ORAL DAILY 10/07/17 10/08/17 Escitalopram [Lexapro] 10 mg ORAL DAILY 10/07/17 10/08/17 Ascorbic Acid [Vitamin C] 1,000 mg PO DAILY 10/08/17 10/08/17 Bupropion HCl [Bupropion HCl Sr] 150 mg PO DAILY 10/08/17 10/08/17 Cholecalciferol (Vitamin D3) 1,000 unit PO DAILY 10/08/17 10/08/17 [Vitamin D3] Fluticasone [Flonase] 1 spray MUSTAPHA BID PRN 10/08/17 10/08/17 Fluticasone/Vilanterol [Breo 1 puffs INH DAILY 10/08/17 10/08/17 Ellipta 200-25 Mcg INH] [place]-3 Fatty Acids/Fish Oil 1,000 mg PO DAILY 10/08/17 10/08/17 [[place]-3 Fish Oil 1,000 mg Sfgl] Apixaban [Eliquis] 5 mg PO BID #60 tablet 10/09/17 Diltiazem HCl 30 mg PO BID PRN #30 tablet 01/14/18 - Allergies Allergies/Adverse Reactions: Allergies Allergy/AdvReac Type Severity Reaction Status Date / Time hydrocodone bitartrate * AdvReac Intermediate Hallucinati Verified 10/09/16 18:54 [From Vicodin] ons - Social History Does the pt smoke?: No Smoking Status: Never smoker Does the pt drink ETOH?: No Does the pt have substance abuse?: No - Immunizations Immunizations are current?: Yes - POLST Patient has POLST: No PD ED PE NORMAL - Vitals Vital signs reviewed: Yes (Hypertensive and tachycardic.) - General General: Alert and oriented X 3, Well developed/nourished - HEENT HEENT: Atraumatic, Pharynx benign - Neck Neck: No adenopathy, No JVD - Cardiac Cardiac: Other (Rapid rate, irregularly irregular rhythm.) - Respiratory Respiratory: No respiratory distress, Clear bilaterally - Abdomen Abdomen: Soft, Non tender - Back Back: No CVA TTP - Derm Derm: No rash - Extremities Extremities: No calf tenderness / cord - Neuro Neuro: Alert and oriented X 3, No motor deficit, No sensory deficit Results - Vitals Vitals: Oxygen O2 Source Room air - EKG (time done) 12:37 Rate: Rate (enter#) (116) Rhythm: Atrial fibrillation Bandana: Anterior hemiblock Ischemia: No: ST elevation c/w ischemia Compare to prior EKG: Unchanged from prior EKG Computer interpretation: Agree with computer - Labs Labs: Laboratory Tests 06/06/18 06/06/18 06/06/18 12:52 12:52 12:52 WBC 6.5 RBC 5.55 Hgb 17.3 Hct 49.5 MCV 89.2 MCH 31.2 H MCHC 35.0 RDW 13.8 Plt Count 239 MPV 8.7 Neut # (Auto) 4.7 Lymph # (Auto) 1.0 L [place] # (Auto) 0.7 Eos # (Auto) 0.1 Baso # (Auto) 0.0 Absolute Nucleated RBC 0.01 Nucleated RBC % 0.2 Sodium 136 Potassium 3.6 Chloride 104 Carbon Dioxide 22 Anion Gap 10.0 BUN 19 Creatinine 1.2 Estimated GFR (MDRD) 59 L Glucose 118 H Calcium 9.2 Total Bilirubin 1.0 AST 20 ALT 21 Alkaline Phosphatase 84 Troponin I < 0.04 Total Protein 7.5 Albumin 4.4 Globulin 3.1 Albumin/Globulin Ratio 1.4 Lipase 29 PD MEDICAL DECISION MAKING - ED course Complexity details: reviewed old records, reviewed results, re-evaluated patient, considered differential, d/w patient, d/w family ED course: The patient's presentation is significant for recurrent atrial fibrillation with rapid ventricular response. His clinical presentation does not suggest cardiac ischemia or dehydration. His electrocardiogram is not significantly changed from previous EKG. CBC and chemistry panel are unremarkable, including a normal troponin of less than 0.04. Treatment in the emergency department included administration of diltiazem 10 mg IV. His heart rate subsequently came down into the 80s, where it remained. He felt subjectively improved, and demonstrated ability to ambulate without lightheadedness, chest pain, or dyspnea. I discussed with him and his ongoing antiarrhythmic treatment, outpatient follow-up with his pump tester, as well as potentially worrisome signs or symptoms that should prompt reevaluation in the emergency department. Departure - Departure Disposition: Home, Self Care Clinical Impression: Paroxysmal atrial fibrillation with rapid ventricular response Condition: Stable Instructions: ED Afib Follow-Up: Siri Connell MD [Primary Care Provider] - Baljinder Finnegan MD [Physician No Access] - Comments: Continue taking additional diltiazem as instructed by your pump tester. Drink adequate fluids to stay well-hydrated. Follow-up with your pump tester tomorrow as planned. Return to the emergency department if you develop recurrent uncontrolled tachycardia, chest pain, shortness of breath, or otherwise worsening symptoms. Discharge Date/Time: 06/06/18 13:35
[2018-06-06 13:29] VITALS: BP 141/85
== END 2018-06-06 13:35 | disposition home or self-care (01) ==
LOC: ED 12:33
DX: I48.0 Paroxysmal atrial fibrillation (principal); Z79.01 Long term (current) use of anticoagulants; I10 Essential (primary) hypertension
CPT/HCPCS: 36415; 80053; 83690; 84484; 85025; 93005; 96374; 99283; 99284

== ENCOUNTER 2018-08-11 12:26 | Outpatient (CLI) | payer MEDICARE ==
[2018-08-11 19:07] LABS: ALBUMIN 4.6 g/dL (3.2-5.5); ALBUMIN/GLOBULIN RATIO 1.6 (1.0-2.2); ALKALINE PHOSPHATASE 85 IU/L (42-121); ALT ALANINE AMINOTRANSFERASE 20 IU/L (10-60); AST ASPARTATE AMINOTRANSFERASE 21 IU/L (10-42); BILIRUBIN,TOTAL 1.2 mg/dL (0.2-1.0); BUN - BLOOD UREA NITROGEN 19 mg/dL (6-20); CALCIUM 9.2 mg/dL (8.5-10.3); CARBON DIOXIDE - CO2 27 mmol/L (21-32); CHLORIDE 101 mmol/L (101-111); CREATININE 1.3 mg/dL (0.6-1.2); GFR - MDRD 54 (>89); GLUCOSE 103 mg/dL (70-100); SODIUM 138 mmol/L (135-145); TOTAL PROTEIN 7.4 g/dL (6.7-8.2)
[2018-08-11 19:17] LABS: HB2 TOTAL 16.5 g/dL; HEMOGLOBIN A1C 0.51 g/dL
[2018-08-11 19:18] LABS: BASOPHILS % (AUTO) 0.7 %; EOSINOPHILS # (AUTO) 0.2 10^3/uL (0.0-0.7); EOSINOPHILS % (AUTO) 3.2 %; HGB - HEMOGLOBIN 14.9 g/dL (14.0-18.0); LYMPHOCYTES # (AUTO) 0.9 10^3/uL (1.5-3.5); LYMPHOCYTES % (AUTO) 16.5 %; MEAN CORPUSCULAR HEMOGLOBIN 30.8 pg (27.0-31.0); MEAN CORPUSCULAR HGB CONC 33.7 g/dL (32.0-36.0); MEAN CORPUSCULAR VOLUME 91.3 fL (80.0-94.0); MEAN PLATELET VOLUME 8.6 fL (7.4-11.4); MONOCYTES # (AUTO) 0.4 10^3/uL (0.0-1.0); MONOCYTES % (AUTO) 7.8 %; NEUTROPHILS % (AUTO) 71.8 %; PLT - PLATELET COUNT 215 10^3/uL (130-450); RED BLOOD COUNT 4.85 10^6/uL (4.70-6.10); RED CELL DISTRIBUTION WIDTH 13.4 % (12.0-15.0); WHITE BLOOD COUNT 5.5 x10^3/uL (4.8-10.8)
== END 2018-08-11 12:27 | disposition home or self-care (01) ==
LOC: LAB.WCP 12:26
PROVIDERS: ATTEND Family Medicine
DX: I10 Essential (primary) hypertension (principal); E11.9 Type 2 diabetes mellitus without complications; E03.9 Hypothyroidism, unspecified
CPT/HCPCS: 36415; 80053; 83036; 84443; 85025

== ENCOUNTER 2018-10-12 16:35 | Outpatient (CLI) | payer MEDICARE ==
[2018-10-12 18:35] LABS: BASOPHILS % (AUTO) 0.4 %; EOSINOPHILS # (AUTO) 0.1 10^3/uL (0.0-0.7); EOSINOPHILS % (AUTO) 1.3 %; HGB - HEMOGLOBIN 14.8 g/dL (14.0-18.0); LYMPHOCYTES # (AUTO) 0.8 10^3/uL (1.5-3.5); LYMPHOCYTES % (AUTO) 11.5 %; MEAN CORPUSCULAR HEMOGLOBIN 30.7 pg (27.0-31.0); MEAN CORPUSCULAR HGB CONC 33.5 g/dL (32.0-36.0); MEAN CORPUSCULAR VOLUME 91.5 fL (80.0-94.0); MEAN PLATELET VOLUME 8.6 fL (7.4-11.4); MONOCYTES # (AUTO) 0.6 10^3/uL (0.0-1.0); MONOCYTES % (AUTO) 8.5 %; NEUTROPHILS # (AUTO) 5.7 10^3/uL (1.5-6.6); NEUTROPHILS % (AUTO) 78.3 %; PLT - PLATELET COUNT 227 10^3/uL (130-450); RED BLOOD COUNT 4.82 10^6/uL (4.70-6.10); RED CELL DISTRIBUTION WIDTH 13.3 % (12.0-15.0); WHITE BLOOD COUNT 7.3 x10^3/uL (4.8-10.8)
[2018-10-12 18:47] LABS: ALBUMIN 4.3 g/dL (3.2-5.5); ALBUMIN/GLOBULIN RATIO 1.4 (1.0-2.2); BILIRUBIN,TOTAL 0.7 mg/dL (0.2-1.0); CALCIUM 9.1 mg/dL (8.5-10.3); CREATININE 1.3 mg/dL (0.6-1.2); TOTAL PROTEIN 7.3 g/dL (6.7-8.2)
== END 2018-10-12 23:59 | disposition home or self-care (01) ==
LOC: LAB.R 16:35
PROVIDERS: ATTEND Physician Assistant
DX: L03.115 Cellulitis of right lower limb (principal)
CPT/HCPCS: 80053; 85025

== ENCOUNTER 2018-11-10 08:00 | Outpatient (CLI) | payer MEDICARE ==
[2018-11-10 18:57] LABS: ALBUMIN 4.4 g/dL (3.2-5.5); ALBUMIN/GLOBULIN RATIO 1.5 (1.0-2.2); BILIRUBIN,TOTAL 1.1 mg/dL (0.2-1.0); CALCIUM 9.4 mg/dL (8.5-10.3); CREATININE 1.2 mg/dL (0.6-1.2); TOTAL PROTEIN 7.4 g/dL (6.7-8.2)
[2018-11-10 19:07] LABS: BASOPHILS # (AUTO) 0.1 10^3/uL (0.0-0.1); EOSINOPHILS # (AUTO) 0.1 10^3/uL (0.0-0.7); EOSINOPHILS % (AUTO) 2.5 %; HGB - HEMOGLOBIN 14.8 g/dL (14.0-18.0); LYMPHOCYTES # (AUTO) 1.1 10^3/uL (1.5-3.5); LYMPHOCYTES % (AUTO) 21.6 %; MEAN CORPUSCULAR HEMOGLOBIN 30.8 pg (27.0-31.0); MEAN CORPUSCULAR HGB CONC 33.3 g/dL (32.0-36.0); MEAN CORPUSCULAR VOLUME 92.5 fL (80.0-94.0); MEAN PLATELET VOLUME 9.2 fL (7.4-11.4); MONOCYTES # (AUTO) 0.5 10^3/uL (0.0-1.0); MONOCYTES % (AUTO) 9.2 %; NEUTROPHILS # (AUTO) 3.3 10^3/uL (1.5-6.6); NEUTROPHILS % (AUTO) 65.7 %; PLT - PLATELET COUNT 198 10^3/uL (130-450); RED BLOOD COUNT 4.79 10^6/uL (4.70-6.10); RED CELL DISTRIBUTION WIDTH 13.5 % (12.0-15.0); WHITE BLOOD COUNT 5.1 x10^3/uL (4.8-10.8)
== END 2018-11-10 08:01 | disposition home or self-care (01) ==
LOC: LAB.WCP 08:00
PROVIDERS: ATTEND Family Medicine
DX: I10 Essential (primary) hypertension (principal); L03.115 Cellulitis of right lower limb
CPT/HCPCS: 36415; 80053; 85025

== ENCOUNTER 2018-11-17 13:06 | Outpatient (CLI) | payer MEDICARE ==
[2018-11-17 18:57] LABS: T4 (THYROXINE) 8.52 ug/dL (6.09-12.23)
[2018-11-17 19:03] LABS: THYROID STIMULATING HORMONE 3.25 uIU/mL (0.34-5.60)
== END 2018-11-17 13:07 | disposition home or self-care (01) ==
LOC: LAB.WCP 13:06
PROVIDERS: ATTEND Family Medicine
DX: E03.9 Hypothyroidism, unspecified (principal)
CPT/HCPCS: 36415; 84436; 84443; 84481

== ENCOUNTER 2019-01-26 14:40 | Outpatient (CLI) | payer MEDICARE ==
[2019-01-26 18:52] LABS: BASOPHILS % (AUTO) 0.6 %; EOSINOPHILS # (AUTO) 0.2 10^3/uL (0.0-0.7); EOSINOPHILS % (AUTO) 2.7 %; HGB - HEMOGLOBIN 13.8 g/dL (14.0-18.0); LYMPHOCYTES # (AUTO) 1.3 10^3/uL (1.5-3.5); LYMPHOCYTES % (AUTO) 18.9 %; MEAN CORPUSCULAR HEMOGLOBIN 30.6 pg (27.0-31.0); MEAN CORPUSCULAR HGB CONC 32.6 g/dL (32.0-36.0); MEAN CORPUSCULAR VOLUME 93.8 fL (80.0-94.0); MEAN PLATELET VOLUME 10.8 fL (7.4-11.4); MONOCYTES # (AUTO) 0.6 10^3/uL (0.0-1.0); MONOCYTES % (AUTO) 9.4 %; NEUTROPHILS # (AUTO) 4.5 10^3/uL (1.5-6.6); NEUTROPHILS % (AUTO) 68.1 %; PLT - PLATELET COUNT 215 10^3/uL (130-450); RED BLOOD COUNT 4.51 10^6/uL (4.70-6.10); RED CELL DISTRIBUTION WIDTH 13.3 % (12.0-15.0); WHITE BLOOD COUNT 6.6 x10^3/uL (4.8-10.8)
[2019-01-26 19:22] LABS: ALBUMIN 4.4 g/dL (3.2-5.5); ALBUMIN/GLOBULIN RATIO 1.6 (1.0-2.2); BILIRUBIN,TOTAL 0.8 mg/dL (0.2-1.0); CREATININE 1.3 mg/dL (0.6-1.2); TOTAL PROTEIN 7.2 g/dL (6.7-8.2)
== END 2019-01-26 23:59 | disposition home or self-care (01) ==
LOC: LAB.WCP 14:40
PROVIDERS: ATTEND Family Medicine
DX: R10.9 Unspecified abdominal pain (principal)
CPT/HCPCS: 36415; 80053; 82150; 83690; 85025

== ENCOUNTER 2019-01-29 11:59 | Outpatient (CLI) | payer MEDICARE ==
[2019-01-29] MEDS ORDERED: IOVERSOL 320 50 ML VIAL ONE (12:32)
--- NOTE | 2019-02-01 07:52 | CT Report ---
Reason: ABDOMINAL PAIN Procedure Date: 01/29/2019 Accession Number: [id number] / [id number] Procedure: CT - Abdomen/Pelvis WO CPT Code: FULL RESULT: EXAM: CT ABDOMEN AND PELVIS (CT KUB) EXAM DATE: 01/29/2019 01:26 PM. CLINICAL HISTORY: Abdominal pain. COMPARISONS: ABDOMEN/PELVIS W/ 07/09/2013 1:22 AM. TECHNIQUE: Routine axial helical CT imaging was performed through the abdomen and pelvis without IV contrast. Reconstructions: Coronal and sagittal. In accordance with CT protocol optimization, one or more of the following dose reduction techniques were utilized for this exam: automated exposure control, adjustment of mA and/or KV based on patient size, or use of iterative reconstructive technique. FINDINGS: Lung Bases: Unremarkable. Right Kidney/Ureter: No stones, hydronephrosis, or hydroureter. No perinephric fat stranding. Left Kidney/Ureter: No stones, hydronephrosis, or hydroureter. No perinephric fat stranding. Other Solid Organs: Noncontrast images of the solid organs are grossly unremarkable. Gallbladder/Bile Ducts: Unremarkable. Peritoneal Cavity: No free fluid, free air or claudette adenopathy. Bowel is grossly unremarkable. There are scattered diverticula of the sigmoid, without evidence of diverticulitis. No evidence of appendicitis, colitis, or bowel obstruction. Pelvic Organs: No bladder stones or wall thickening. Noncontrast images of the visualized pelvic organs are unremarkable. Vasculature: Unremarkable. Other: None. IMPRESSION: No urinary tract stones or obstruction. Scattered diverticula of the sigmoid without evidence of diverticulitis. RADIA
== END 2019-01-29 12:00 | disposition home or self-care (01) ==
LOC: DI 11:59
PROVIDERS: ATTEND Family Medicine
DX: R10.9 Unspecified abdominal pain (principal); K57.30 Diverticulosis of large intestine without perforation or abscess without bleeding
CPT/HCPCS: 74176

== ENCOUNTER 2019-02-10 12:06 | Outpatient (CLI) | payer MEDICARE ==
[2019-02-10 19:05] LABS: CREATININE,URINE 288.4 mg/dL; MICROALBUM/CREATININE RATIO,UR 3.8 ug/mg (<30.0); MICROALBUMIN,URINE 1.1 mg/dL (0-300.0)
[2019-02-10 19:13] LABS: CHOLESTEROL 144 mg/dL; HDL CHOLESTEROL 36 mg/dL; LDL CHOLESTEROL,CALCULATED 94 mg/dL; LDL/HDL RATIO 2.6 (<3.6); VLDL CHOLESTEROL 14 mg/dL
[2019-02-10 19:22] LABS: HEMOGLOBIN A1C 0.49 g/dL; HEMOGLOBIN A1C % 5.1 % (4.6-6.2)
== END 2019-02-10 23:59 | disposition home or self-care (01) ==
LOC: LAB.WCP 12:06
PROVIDERS: ATTEND Family Medicine
DX: R42 Dizziness and giddiness (principal); E03.9 Hypothyroidism, unspecified; E11.9 Type 2 diabetes mellitus without complications; I48.0 Paroxysmal atrial fibrillation; D64.9 Anemia, unspecified
CPT/HCPCS: 36415; 80061; 82043; 82570; 83036; 83721

== ENCOUNTER 2019-08-22 17:20 | Outpatient (CLI) | payer MEDICARE | END 2019-08-22 23:59 | disposition EMS.NT | LOC: EMS 17:20 | PROVIDERS: ATTEND Surgery | DX: S81.811A Laceration without foreign body, right lower leg, initial encounter (principal); W13.8XXA Fall from, out of or through other building or structure, initial encounter; Y92.008 Other place in unspecified non-institutional (private) residence as the place of occurrence of the external cause ==

== ENCOUNTER 2019-08-22 18:30 | Emergency (ER) | payer MEDICARE ==
[2019-08-22 18:37] VITALS: BP 148/70
[2019-08-22] MEDS ORDERED: LIDOCAINE-EPINEPH-TETRACAINE 3 ML SYRINGE TOP STA (18:49)
[2019-08-22] MEDS ORDERED: BUFFERED LIDOCAINE 10 ML SYRINGE SUBQ STA (18:49)
--- NOTE | 2019-08-22 18:50 | ED Physician Documentation ---
PD HPI LOWER EXT INJURY - Stated complaint Stated Complaint: RT LEG LAC - Chief complaint Chief Complaint: Laceration - History obtained from History obtained from: Patient (73-year-old gentleman who is up-to-date on tetanus (July 2018). His balcony collapsed and his leg went through and is lacerated multiple places on the right leg. He is able to walk or bear weight. Pain is not too bad. No other injuries.) Review of Systems Constitutional: reports: Reviewed and negative Throat: reports: Reviewed and negative Cardiac: reports: Reviewed and negative Respiratory: reports: Reviewed and negative PD PAST MEDICAL HISTORY - Past Medical History Cardiovascular: Hypertension, Atrial fibrillation, Murmur Respiratory: Sleep apnea, CPAP use Endocrine/Autoimmune: HyPOthyroidism GI: None : Frequency, Kidney stones HEENT: None Psych: None Musculoskeletal: None Derm: None - Past Surgical History Past Surgical History: Yes Ortho: Carpal Tunnel surgery HEENT: Cataracts - Present Medications Home Medications: Ambulatory Orders Medication Instructions Recorded Confirmed Levothyroxine [Synthroid] 125 mcg PO QDAC 06/09/16 08/22/19 Oxybutynin Chloride [Ditropan Xl] 10 mg PO DAILY 06/09/16 08/22/19 Albuterol Sulfate [Proair Hfa 2 puffs INH Q4H PRN 10/09/16 08/22/19 Inhaler] Chlorthalidone 25 mg ORAL DAILY 10/07/17 08/22/19 Ascorbic Acid [Vitamin C] 1,000 mg PO DAILY 10/08/17 08/22/19 Cholecalciferol (Vitamin D3) 1,000 unit PO DAILY 10/08/17 08/22/19 [Vitamin D3] Fluticasone [Flonase] 1 spray MUSTAPHA BID PRN 10/08/17 08/22/19 Fluticasone/Vilanterol [Breo 1 puffs INH DAILY 10/08/17 08/22/19 Ellipta 200-25 Mcg INH] [place]-3 Fatty Acids/Fish Oil 1,000 mg PO DAILY 10/08/17 08/22/19 [[place]-3 Fish Oil 1,000 mg Sfgl] Apixaban [Eliquis] 5 mg PO BID #60 tablet 10/09/17 08/22/19 Diltiazem HCl 30 mg PO Q4HR PRN 03/23/20 03/23/20 Duloxetine HCl [Cymbalta] 2 cap PO DAILY 08/22/19 08/22/19 - Allergies Allergies/Adverse Reactions: Allergies Allergy/AdvReac Type Severity Reaction Status Date / Time hydrocodone bitartrate * AdvReac Intermediate Hallucinati Verified 10/09/16 18:54 [From Vicodin] ons - Social History Does the pt smoke?: No Smoking Status: Never smoker Does the pt drink ETOH?: No Does the pt have substance abuse?: No - Immunizations Immunizations are current?: Yes - POLST Patient has POLST: No PD ED PE NORMAL - Vitals Vital signs reviewed: Yes - General General: Alert and oriented X 3, No acute distress - Extremities Extremities: Other (Multiple scrapes and skin tears on the right lower extremity below the knee with one longer deeper laceration just medial to the tibia. No bony tenderness. No limited range of motion. Normal neurovascular function in the foot.) - Neuro Neuro: Alert and oriented X 3, Normal speech Results - Vitals Vitals: Vital Signs - 24 hr 08/22/19 18:33 Temperature 36.7 C Heart Rate 67 Respiratory 18 Rate Blood Pressure 148/70 H O2 Saturation 99 Oxygen O2 Source Room air Procedures - Laceration (location) Right leg Length in cm: 15 Wound type: Other (Multiple small skin tears were closed after irrigation with Steri-Strips but there was a longer laceration anteriorly) Anesthesia: LET, Lidocaine 1%, With bicarb Wound Preparation: Irrigated copiously NS Skin layer closure: [place] Other: Tetanus UTD Complexity: Simple Departure - Departure Disposition: 01 Home, Self Care Clinical Impression: Laceration Condition: Good Record reviewed to determine appropriate education?: Yes Comments: Downtime Discharge instructions for Bud Moralez Seen August 22, 2019 Attending physician Miguelito Sesay MD Diagnosis 15 cm right leg laceration and multiple skin tears of the right leg. Condition stable Instructions: Come back for any signs of infection which would include: Redness, swelling, drainage, increased pain, or fevers. You can wash it soap and water. Keep it covered and moist with bacitracin ointment which is available over the counter; avoid neosporin. Follow-up with your physician in about 3 weeks for staple removal. Keflex and Vicodin prepacks given to go. And hydrocodone/acetaminophen 5/325 1 to 2 tablets by mouth every 6 hours as needed for pain #15 no refills and Keflex 500 mg 1 p.o. 4 times daily x7 days QS no refills Discharge Date/Time: 08/22/19 20:00
[2019-08-22] MEDS ORDERED: HYDROcod/ACET 5/325 Prepack 4 PO ONE (19:46)
[2019-08-22] MEDS ORDERED: BACITRACIN ZINC OINT 1 PACKET TOP ONE ×2 (19:47→19:50)
[2019-08-22] MEDS ORDERED: CEPHALEXIN 250 MG Prepack 8 CAP BOTTLE PO ONE (19:47)
== END 2019-08-22 20:00 | disposition home or self-care (01) ==
LOC: ED 18:30
DX: S81.811A Laceration without foreign body, right lower leg, initial encounter (principal); I10 Essential (primary) hypertension; W13.0XXA Fall from, out of or through balcony, initial encounter
CPT/HCPCS: 12005; 90471; 99282; 99283; A9270

== ENCOUNTER 2019-08-23 08:00 | Outpatient (CLI) | payer MEDICARE ==
[2019-08-23 12:20] LABS: BASOPHILS % (AUTO) 0.5 %; EOSINOPHILS # (AUTO) 0.1 10^3/uL (0.0-0.7); EOSINOPHILS % (AUTO) 1.4 %; HGB - HEMOGLOBIN 15.2 g/dL (14.0-18.0); LYMPHOCYTES # (AUTO) 0.7 10^3/uL (1.5-3.5); LYMPHOCYTES % (AUTO) 10.1 %; MEAN CORPUSCULAR HEMOGLOBIN 32.4 pg (27.0-31.0); MEAN CORPUSCULAR HGB CONC 35.2 g/dL (32.0-36.0); MEAN CORPUSCULAR VOLUME 92.1 fL (80.0-94.0); MEAN PLATELET VOLUME 10.1 fL (7.4-11.4); MONOCYTES # (AUTO) 0.8 10^3/uL (0.0-1.0); MONOCYTES % (AUTO) 11.6 %; NEUTROPHILS # (AUTO) 5.1 10^3/uL (1.5-6.6); NEUTROPHILS % (AUTO) 76.1 %; PLT - PLATELET COUNT 214 10^3/uL (130-450); RED BLOOD COUNT 4.69 10^6/uL (4.70-6.10); RED CELL DISTRIBUTION WIDTH 12.6 % (12.0-15.0); WHITE BLOOD COUNT 6.7 x10^3/uL (4.8-10.8)
== END 2019-08-23 23:59 | disposition home or self-care (01) ==
LOC: LAB.WCP 08:00
PROVIDERS: ATTEND Family Medicine
DX: S81.811D Laceration without foreign body, right lower leg, subsequent encounter (principal)
CPT/HCPCS: 36415; 85025

== ENCOUNTER 2019-08-28 14:19 | Emergency (ER) | payer MEDICARE ==
[2019-08-28 14:30] VITALS: BP 143/71
--- NOTE | 2019-08-28 14:55 | ED Physician Documentation ---
PD HPI WOUND RECHECK - Stated complaint Stated Complaint: WOUND CHECK - Chief complaint Chief Complaint: Laceration - Histroy obtained from History obtained from: Patient - History of Present Illness Location: Right Lower Extremity Pain level max: 0 Pain level now: 0 Associated symptoms: No: Fever - Additional information Additional information: 73-year-old male was seen here approximately for a laceration to the leg after falling through a deck. He states he has had some drainage and bruising. No fevers. The drainage has been clear. He has had a wound check already with his doctor. Review of Systems Constitutional: denies: Fever GI: denies: Vomiting PD PAST MEDICAL HISTORY - Past Medical History Past Medical History: Yes Cardiovascular: Hypertension, Atrial fibrillation, Murmur Respiratory: Sleep apnea, CPAP use Endocrine/Autoimmune: HyPOthyroidism GI: None : Frequency, Kidney stones HEENT: None Psych: None Musculoskeletal: None Derm: None - Past Surgical History Past Surgical History: Yes Ortho: Carpal Tunnel surgery HEENT: Cataracts - Present Medications Home Medications: Ambulatory Orders Medication Instructions Recorded Confirmed Levothyroxine [Synthroid] 125 mcg PO QDAC 06/09/16 08/22/19 Oxybutynin Chloride [Ditropan Xl] 10 mg PO DAILY 06/09/16 08/22/19 Albuterol Sulfate [Proair Hfa 2 puffs INH Q4H PRN 10/09/16 08/22/19 Inhaler] Chlorthalidone 25 mg ORAL DAILY 10/07/17 08/22/19 Ascorbic Acid [Vitamin C] 1,000 mg PO DAILY 10/08/17 08/22/19 Cholecalciferol (Vitamin D3) 1,000 unit PO DAILY 10/08/17 08/22/19 [Vitamin D3] Fluticasone [Flonase] 1 spray [place] BID PRN 10/08/17 08/22/19 Fluticasone/Vilanterol [Breo 1 puffs INH DAILY 10/08/17 08/22/19 Ellipta 200-25 Mcg INH] [place]-3 Fatty Acids/Fish Oil 1,000 mg PO DAILY 10/08/17 08/22/19 [[place]-3 Fish Oil 1,000 mg Sfgl] Apixaban [Eliquis] 5 mg PO BID #60 tablet 10/09/17 08/22/19 Diltiazem HCl 30 mg PO Q4HR PRN 08/22/19 08/22/19 Duloxetine HCl [Cymbalta] 2 cap PO DAILY 08/22/19 08/22/19 - Allergies Allergies/Adverse Reactions: Allergies Allergy/AdvReac Type Severity Reaction Status Date / Time hydrocodone bitartrate * AdvReac Intermediate Hallucinati Verified 08/28/19 14:30 [From Vicodin] ons - Social History Does the pt smoke?: No Smoking Status: Never smoker Does the pt drink ETOH?: No Does the pt have substance abuse?: No - Immunizations Immunizations are current?: Yes - POLST Patient has POLST: No PD ED PE NORMAL - Vitals Vital signs reviewed: Yes - General General: Alert and oriented X 3, No acute distress - Derm Derm: Warm and dry - Extremities Extremities: Other (Right lower extremity - Well-healing lacerations and abrasions without signs of infection. There is a large amount of ecchymosis. Compartments are soft. Neurovascular intact. The lower aspect of the large laceration down the medial aspect of the tibia is slightly open and draining serous fluid. No signs of infection) - Neuro Neuro: Alert and oriented X 3 Results - Vitals Vitals: Vital Signs - 24 hr 08/28/19 14:26 Temperature 37.4 C Heart Rate 69 Respiratory 22 Rate Blood Pressure 143/71 H O2 Saturation 99 Oxygen O2 Source Room air PD MEDICAL DECISION MAKING - ED course Complexity details: considered differential, d/w patient ED course: Mepitel was placed over the open area of the wound. Kerlix was wrapped loosely. Encouraged him to allow the wound to be open to air. This should help it drain and heal. There are no signs of infection. There is bruising, but this is consistent with the injury. No evidence of DVT. Patient counseled regarding signs and symptoms for which I believe and urgent re-evaluation would be necessary. Patient with good understanding of and agreement to plan and is comfortable going home at this time This document was made in part using voice recognition software. While efforts are made to proofread this document, sound alike and grammatical errors may occur. This wound may benefit from wound care as well as it may take several weeks or longer to heal. Departure - Departure Disposition: 01 Home, Self Care Clinical Impression: Encounter for wound re-check Condition: Good Instructions: ED Sutr Check No Infec Follow-Up: Neno Amor MD [Primary Care Provider] - Within 1 week Comments: This wound may require wound care. Return if you worsen. Your doctor may want to refer you to a wound care to help this heal. The Mepitel can stay in place for up to 2 weeks. You can leave the wound open to air as much as possible to help it dry. Return if you notice redness or swelling or increasing pain.
== END 2019-08-28 15:03 | disposition home or self-care (01) ==
LOC: ED 14:19
DX: S81.812D Laceration without foreign body, left lower leg, subsequent encounter (principal); I10 Essential (primary) hypertension
CPT/HCPCS: 99281; 99282

== ENCOUNTER 2019-11-09 14:48 | Outpatient (CLI) | payer MEDICARE ==
[2019-11-09 18:28] LABS: BASOPHILS % (AUTO) 0.5 %; EOSINOPHILS # (AUTO) 0.1 10^3/uL (0.0-0.7); EOSINOPHILS % (AUTO) 1.9 %; HGB - HEMOGLOBIN 14.6 g/dL (14.0-18.0); LYMPHOCYTES % (AUTO) 16.5 %; MEAN CORPUSCULAR HEMOGLOBIN 30.9 pg (27.0-31.0); MEAN CORPUSCULAR HGB CONC 33.5 g/dL (32.0-36.0); MEAN CORPUSCULAR VOLUME 92.4 fL (80.0-94.0); MEAN PLATELET VOLUME 10.6 fL (7.4-11.4); MONOCYTES # (AUTO) 0.6 10^3/uL (0.0-1.0); MONOCYTES % (AUTO) 9.3 %; NEUTROPHILS # (AUTO) 4.3 10^3/uL (1.5-6.6); NEUTROPHILS % (AUTO) 71.6 %; PLT - PLATELET COUNT 239 10^3/uL (130-450); RED BLOOD COUNT 4.72 10^6/uL (4.70-6.10); RED CELL DISTRIBUTION WIDTH 13.1 % (12.0-15.0); WHITE BLOOD COUNT 5.9 x10^3/uL (4.8-10.8)
[2019-11-09 18:45] LABS: CREATININE 1.2 mg/dL (0.6-1.2)
[2019-11-09 18:50] LABS: HB2 TOTAL 15.2 g/dL; HEMOGLOBIN A1C 0.49 g/dL; HEMOGLOBIN A1C % 5.1 % (4.6-6.2)
[2019-11-09 19:10] LABS: BILIRUBIN,URINE NEGATIVE (NEGATIVE); GLUCOSE, URINE (UA) NEGATIVE (NEGATIVE); KETONES,URINE (UA) NEGATIVE (NEGATIVE); LEUKOCYTE ESTERASE, URINE NEGATIVE (NEGATIVE); NITRITE,URINE NEGATIVE (NEGATIVE); OCCULT BLOOD,URINE NEGATIVE (NEGATIVE); PROTEIN,URINE NEGATIVE (NEGATIVE); UROBILINOGEN,URINE 0.2 (NORMAL) E.U./dL (NORMAL)
[2019-11-09 19:15] LABS: CLARITY,URINE CLEAR (CLEAR)
[2019-11-09 19:16] LABS: RBC,URINE None Seen /HPF (0-5); SQUAMOUS EPITHELIAL CELL,UR NONE SEEN (<= Few)
[2019-11-09 19:17] LABS: BACTERIA,URINE None Seen /HPF (None Seen)
== END 2019-11-09 23:59 | disposition home or self-care (01) ==
LOC: LAB.WCP 14:48
PROVIDERS: ATTEND Orthopaedic Surgery
DX: Z01.818 Encounter for other preprocedural examination (principal); N39.0 Urinary tract infection, site not specified; R73.9 Hyperglycemia, unspecified
CPT/HCPCS: 36415; 80048; 81001; 83036; 85025; 87086

== ENCOUNTER 2019-11-09 15:28 | Outpatient (CLI) | payer MEDICARE | END 2019-11-09 15:29 | disposition home or self-care (01) | LOC: RT 15:28 | PROVIDERS: ATTEND Orthopaedic Surgery | DX: Z01.818 Encounter for other preprocedural examination (principal); N39.0 Urinary tract infection, site not specified; R73.9 Hyperglycemia, unspecified | CPT/HCPCS: 36415; 80048; 81001; 83036; 85025; 87086; 93005 ==

== ENCOUNTER 2020-02-09 09:31 | Outpatient (CLI) | payer MEDICARE ==
[2020-02-09 13:06] LABS: BUN - BLOOD UREA NITROGEN 21 mg/dL (6-20); CALCIUM 9.2 mg/dL (8.5-10.3); CARBON DIOXIDE - CO2 29 mmol/L (21-32); CHLORIDE 104 mmol/L (101-111); CHOL/HDL RATIO 3.9 (<5.0); CHOLESTEROL 150 mg/dL; CREATININE 1.3 mg/dL (0.6-1.2); GLUCOSE 104 mg/dL (70-100); HDL CHOLESTEROL 38 mg/dL; LDL CHOLESTEROL,CALCULATED 95 mg/dL; LDL/HDL RATIO 2.5 (<3.6); SODIUM 140 mmol/L (135-145); VLDL CHOLESTEROL 17 mg/dL
[2020-02-09 13:18] LABS: CREATININE,URINE 211.4 mg/dL; MICROALBUM/CREATININE RATIO,UR 3.3 ug/mg (<30.0); MICROALBUMIN,URINE 0.7 mg/dL (0-300.0)
[2020-02-09 13:32] LABS: HEMOGLOBIN A1c% 5.1 % (4.27-6.07)
== END 2020-02-09 23:59 | disposition home or self-care (01) ==
LOC: LAB.WCP 09:31
PROVIDERS: ATTEND Family Medicine
DX: I10 Essential (primary) hypertension (principal); E11.9 Type 2 diabetes mellitus without complications; E03.9 Hypothyroidism, unspecified
CPT/HCPCS: 36415; 80048; 80061; 82043; 82570; 83036; 83721; 84443

== ENCOUNTER 2020-03-07 14:38 | Outpatient (CLI) | payer MEDICARE ==
[2020-03-07 18:51] LABS: ALBUMIN 4.6 g/dL (3.2-5.5); BILIRUBIN,DIRECT 0.2 mg/dL (0.1-0.5); TOTAL PROTEIN 7.4 g/dL (6.7-8.2)
== END 2020-03-07 23:59 | disposition home or self-care (01) ==
LOC: LAB.WCP 14:38
PROVIDERS: ATTEND Psychiatry & Neurology Psychiatry
DX: F90.9 Attention-deficit hyperactivity disorder, unspecified type (principal); Z51.81 Encounter for therapeutic drug level monitoring; Z79.899 Other long term (current) drug therapy
CPT/HCPCS: 36415; 80076

== ENCOUNTER 2020-04-05 14:59 | Outpatient (CLI) | payer MEDICARE | END 2020-04-05 15:00 | disposition EMS.NT | LOC: EMS 14:59 | PROVIDERS: ATTEND Surgery | DX: R55 Syncope and collapse (principal) ==

== ENCOUNTER 2020-07-09 08:00 | Outpatient (CLI) | payer MEDICARE ==
[2020-07-09 18:42] LABS: ALBUMIN 4.7 g/dL (3.2-5.5); ALBUMIN/GLOBULIN RATIO 1.9 (1.0-2.2); CALCIUM 9.7 mg/dL (8.5-10.3); CREATININE 1.4 mg/dL (0.6-1.2); TOTAL PROTEIN 7.2 g/dL (6.7-8.2)
== END 2020-07-09 23:59 | disposition home or self-care (01) ==
LOC: LAB.WCP 08:00
PROVIDERS: ATTEND Nurse Practitioner Family
DX: N18.30 Chronic kidney disease, stage 3 unspecified (principal)
CPT/HCPCS: 36415; 80053

== ENCOUNTER 2020-08-31 08:00 | Outpatient (CLI) | payer MEDICARE ==
[2020-08-31 18:38] LABS: BASOPHILS % (AUTO) 0.8 %; EOSINOPHILS # (AUTO) 0.1 10^3/uL (0.0-0.7); EOSINOPHILS % (AUTO) 2.3 %; HCT - HEMATOCRIT 44.5 % (42.0-52.0); HGB - HEMOGLOBIN 14.6 g/dL (14.0-18.0); LYMPHOCYTES # (AUTO) 0.9 10^3/uL (1.5-3.5); MEAN CORPUSCULAR HEMOGLOBIN 31.1 pg (27.0-31.0); MEAN CORPUSCULAR HGB CONC 32.8 g/dL (32.0-36.0); MEAN CORPUSCULAR VOLUME 94.9 fL (80.0-94.0); MEAN PLATELET VOLUME 10.2 fL (7.4-11.4); MONOCYTES # (AUTO) 0.4 10^3/uL (0.0-1.0); MONOCYTES % (AUTO) 8.9 %; NEUTROPHILS # (AUTO) 3.3 10^3/uL (1.5-6.6); NEUTROPHILS % (AUTO) 69.8 %; PLT - PLATELET COUNT 229 10^3/uL (130-450); RED BLOOD COUNT 4.69 10^6/uL (4.70-6.10); RED CELL DISTRIBUTION WIDTH 13.7 % (12.0-15.0); WHITE BLOOD COUNT 4.7 x10^3/uL (4.8-10.8)
[2020-08-31 18:56] LABS: CALCIUM 9.5 mg/dL (8.5-10.3); CREATININE 1.3 mg/dL (0.6-1.2); POTASSIUM 3.8 mmol/L (3.5-5.0)
--- OUTSIDE RECORDS SUMMARY | 2020-09-05 02:52 | EXTERNAL MEDICAL SUMMARY RPT | Continuity of Care Document ---
:1945 Demographics Phone Unavailable Preferred Language Polish Marital Status Unknown Adventist Affiliation Unknown Race Unknown Ethnic Group Unknown Author Organization [place] Address [address] [place] [address] Phone Care Team Providers Name Role Phone Langrock Unavailable Unavailable Langrock Unavailable Unavailable Yashira Unavailable Unavailable Problems date description facility [id number] Obesity, unspecified [facility] [id number] Obstructive sleep apnea (adult) (pediat sheri) [facility] 20200725 Unilateral primary osteoarthritis, [facility] Medications date description facility 20200629 24 HR venlafaxine 150 MG Extended Relea se Capsule [facility] 20200629 atomoxetine 40 MG Oral Capsule [facility] 17266707 atomoxetine 80 MG Oral Capsule [facility] 18454713 24 HR venlafaxine 150 MG Extended Relea se Capsule [facility] 82005674 atomoxetine 40 MG Oral Capsule [facility] 48251406 atomoxetine 80 MG Oral Capsule [facility] 18291987 24 HR venlafaxine 150 MG Extended Relea se Capsule [facility] 37484536 24 HR venlafaxine 150 MG Extended Relea se Capsule [facility] 16318402 24 HR venlafaxine 75 MG Extended Releas e Tablet [facility] Procedures date description facility 20200725 General Physician [facility] Social History date description facility [id number]
== END 2020-08-31 23:59 | disposition home or self-care (01) ==
LOC: LAB.WCP 08:00
PROVIDERS: ATTEND Orthopaedic Surgery
DX: Z01.812 Encounter for preprocedural laboratory examination (principal)
CPT/HCPCS: 36415; 80048; 85025

== ENCOUNTER 2020-11-01 00:28 | Outpatient (CLI) | payer MEDICARE | END 2020-11-01 00:29 | disposition EMS.NT | LOC: EMS 00:28 | DX: K59.00 Constipation, unspecified (principal) ==

== ENCOUNTER 2020-11-01 02:04 | Outpatient (CLI) | payer MEDICARE | END 2020-11-01 02:05 | disposition critical access hospital (66) | LOC: EMS 02:04 | DX: R10.9 Unspecified abdominal pain (principal) | CPT/HCPCS: A0425; A0429 ==

== ENCOUNTER 2020-11-01 02:19 | Emergency (ER) | payer MEDICARE ==
--- OUTSIDE RECORDS SUMMARY | 2020-11-01 02:28 | EXTERNAL MEDICAL SUMMARY RPT | Continuity of Care Document ---
:1945 Demographics Phone Unavailable Preferred Language Portuguese Marital Status Unknown Sikhism Affiliation Unknown Race Unknown Ethnic Group Unknown Author Organization [facility] Address [address] [id number] Phone Care Team Providers Name Role Phone Yashira Unavailable Unavailable Langrock Unavailable Unavailable Scheidt Unavailable Unavailable Langrock Unavailable Unavailable Allergies Encounters Medications date description facility 20201026 Hydromorphone Hydrochloride 2 MG Oral T [facility] 20201026 Acetaminophen 325 MG Oral Tablet [facility] 50995182 Aspirin 81 MG Enteric Coated Tablet [facility] 20201026 Ibuprofen 400 MG Oral Tablet [facility] 20201023 Acetaminophen 325 MG Oral Tablet [facility] 97918535 24 HR venlafaxine 150 MG Extended Relea se Capsule [facility] 75694453 atomoxetine 80 MG Oral Capsule [facility] 74648253 atomoxetine 80 MG Oral Capsule [facility] 42520958 dronedarone 400 MG Oral Tablet [facility] 19969597 dronedarone 400 MG Oral Tablet [facility] 67262515 24 HR venlafaxine 75 MG Extended Releas e Capsule [facility] 10310080 24 HR venlafaxine 75 MG Extended Releas e Capsule [facility] 12980228 24 HR venlafaxine 75 MG Extended Releas e Tablet [facility] 15821809 24 HR venlafaxine 75 MG Extended Releas e Tablet [facility] Problems date description facility [id number] Unilateral primary osteoarthritis, righ knee [facility] 36097897 Presence of left artificial knee joint [facility] [id number] Encounter for preprocedural laboratory examination [facility] [id number] Contact with and (suspected) exposure t [address] Procedures date description facility 20201023 [facility] [id number] [facility] [id number] [facility] Results Vital Signs date measurement value source 20201023 height_standard 69.5 in 20201023 height_metric 176.53 cm 20201023 BMI 37.2 kg/m2 20201026 weight_standard 116.1 lb 20201026 weight_metric 52.66 kg 20201026 temperature_standard 98.3 F 20201026 temperature_metric 36.83 C 20201026 respiration_rate 18 /min 20201026 heart_rate 62 /min 20201026 BP_systolic 121 mm[Hg] 20201026 BP_diastolic 65 mm[Hg]
--- NOTE | 2020-11-01 02:48 | ED Physician Documentation ---
PD HPI ABD PAIN - Stated complaint Stated Complaint: CONSTIPATION - Chief complaint Chief Complaint: General - History obtained from History obtained from: Patient, Family ( (in ED at bedside)) - History of Present Illness Timing - onset: Yesterday Timing - details: Gradual onset, Waxing and waning Pain level max: 8 Pain level now: 5 Quality: Cramping Location: All over / everywhere Associated symptoms: Constipation. No: Fever, Nausea, Vomiting Recently seen: Surgery - Additional information Additional information: brought in by ambulance. Patient had a total right knee replacement one week ago. He has been taking narcotic pain medications as prescribed. His last bowel movement was three or four days ago. He presents due to abdominal pain, diffuse and cramping, consistent with constipation. He had a similar problem several months ago when he had his other knee replaced, although he did not need to seek medical attention. He has tried prune juice and MiraLAX at home without results. His tried to give fleets enema tonight but was unable to instill most of it due to worsening pain as she did so. Review of Systems Constitutional: denies: Fever GI: reports: Abdominal Pain, Abdominal Swelling, Constipation. denies: Nausea, Vomiting Musculoskeletal: reports: Joint pain (right knee, appropriate for post-op (not worsening)), Joint swelling PD PAST MEDICAL HISTORY - Past Medical History Past Medical History: Yes Cardiovascular: Hypertension, Atrial fibrillation, Murmur Respiratory: Sleep apnea, CPAP use Neuro: None Endocrine/Autoimmune: Type 2 diabetes, HyPOthyroidism GI: None : Incontinence, Frequency, Kidney stones HEENT: None Psych: Depression, Anxiety Musculoskeletal: Osteoarthritis Derm: Eczema, Other - Past Surgical History Past Surgical History: Yes Ortho: Knee replacement, Carpal Tunnel surgery, Other HEENT: Cataracts - Present Medications Home Medications: Ambulatory Orders Medication Instructions Recorded Confirmed Levothyroxine [Synthroid] 125 mcg PO QDAC 06/09/16 11/01/20 Oxybutynin Chloride [Ditropan Xl] 10 mg PO DAILY 06/09/16 11/01/20 Albuterol Sulfate [Proair Hfa 2 puffs INH Q4H PRN 10/09/16 11/01/20 Inhaler] Chlorthalidone 25 mg ORAL DAILY 10/07/17 11/01/20 Ascorbic Acid [Vitamin C] 1,000 mg PO DAILY 10/08/17 11/01/20 Cholecalciferol (Vitamin D3) 1,000 unit PO DAILY 10/08/17 11/01/20 [Vitamin D3] [place]-3 Fatty Acids/Fish Oil 1,000 mg PO DAILY 10/08/17 11/01/20 [[place]-3 Fish Oil 1,000 mg Sfgl] Apixaban [Eliquis] 5 mg PO BID #60 tablet 10/09/17 11/01/20 Dronedarone HCl [Multaq] 400 mg PO BID 11/01/20 11/01/20 HYDROmorphone [Dilaudid] 2 mg PO Q3H 11/01/20 11/01/20 Tamsulosin [Flomax] 0.4 mg PO DAILY 11/01/20 11/01/20 Venlafaxine ER [Effexor ER] 75 mg PO BID 11/01/20 11/01/20 hydrOXYzine PAMOATE [Vistaril] 25 mg PO Q6H 11/01/20 11/01/20 - Allergies Allergies/Adverse Reactions: Allergies Allergy/AdvReac Type Severity Reaction Status Date / Time codeine AdvReac Unknown Verified 11/01/20 02:30 metoprolol AdvReac Unknown Verified 11/01/20 02:30 - Social History Does the pt smoke?: No Smoking Status: Never smoker Does the pt drink ETOH?: No Does the pt have substance abuse?: No - Immunizations Immunizations are current?: Yes - POLST Patient has POLST: No PD ED PE NORMAL - Vitals Vital signs reviewed: Yes - General General: Alert and oriented X 3, No acute distress, Well developed/nourished - Abdomen Abdomen: Normal bowel sounds, Soft, Non tender, Non distended Results - Vitals Vitals: Vital Signs - 24 hr 11/01/20 11/01/20 11/01/20 02:28 02:57 04:14 Temperature 36.6 C 36.6 C Heart Rate 71 71 66 Respiratory 16 16 Rate Blood Pressure 137/70 H 137/70 H O2 Saturation 99 99 97 11/01/20 11/01/20 11/01/20 04:25 04:40 05:01 Temperature Heart Rate Respiratory 19 19 Rate Blood Pressure 127/66 O2 Saturation 11/01/20 05:21 Temperature Heart Rate 70 Respiratory 16 Rate Blood Pressure O2 Saturation 98 Oxygen O2 Source Room air - Rads (name of study) abd. xrays Radiology: Prelim report reviewed, See rad report PD MEDICAL DECISION MAKING - ED course Complexity details: re-evaluated patient, considered differential, d/w patient, d/w family ED course: given fleets oil enema in ED and he subsequently had large BM with resolution of symptoms. xrays suggest large amount of stool and he likely has significant stool yet to pass and thus given magnesium citrate to take once he is home. Departure - Departure Disposition: 01 Home, Self Care Clinical Impression: Constipation Condition: Good Instructions: ED Constipation Comments: Drink 1/3 of the magnesium citrate when you get home. If you don't have adequate results after 2 hours, drink another third and repeat 2 hours later if necessary. Discharge Date/Time: 11/01/20 05:22
[2020-11-01] MEDS ORDERED: MINERAL OIL ENEMA 133 ML BOTTLE RC STA (04:28)
[2020-11-01 04:42] VITALS: BP 127/66
[2020-11-01] MEDS ORDERED: MAGNESIUM CITRATE 296 ML BOTTLE PO STA (05:07)
--- NOTE | 2020-11-01 08:43 | XRAY Report ---
PROCEDURE: Abdomen Acute INDICATIONS: Abdominal pain, constipation TECHNIQUE: One view chest and two views of the abdomen were acquired. COMPARISON: 01/29/2019 CT abdomen and pelvis FINDINGS: Surgical changes and devices: None. Chest: Lungs are clear. Heart size is normal. No pleural effusions. No pneumoperitoneum. Abdomen: Large volume of formed stool throughout the abdomen. Bowel gas pattern is normal. No suspi cious calcifications. Visualized solid organ contours appear normal. Bones: No suspicious bony lesions. IMPRESSION: No acute finding. Nonobstructive bowel gas pattern. Large volume of stool in the abdomen consistent with constipation. Reviewed by: Chan Crowley MD on 11/01/2020 8:42 AM PDT Approved by: Chan Crowley MD on 11/01/2020 8:42 AM PDT Station ID: [id number]
== END 2020-11-01 05:22 | disposition home or self-care (01) ==
LOC: EDUNIT# → ED 02:19
DX: K59.00 Constipation, unspecified (principal); E11.9 Type 2 diabetes mellitus without complications; I10 Essential (primary) hypertension; I48.91 Unspecified atrial fibrillation; Z79.01 Long term (current) use of anticoagulants
CPT/HCPCS: 74022; 99283; A9270

== ENCOUNTER 2021-03-13 12:42 | Outpatient (CLI) | payer MEDICARE ==
[2021-03-13 18:32] LABS: ALBUMIN 4.9 g/dL (3.2-5.5); ALBUMIN/GLOBULIN RATIO 1.8 (1.0-2.2); ALKALINE PHOSPHATASE 89 IU/L (42-121); ALT ALANINE AMINOTRANSFERASE 20 IU/L (10-60); AST ASPARTATE AMINOTRANSFERASE 23 IU/L (10-42); BILIRUBIN,TOTAL 1.1 mg/dL (0.2-1.0); BUN - BLOOD UREA NITROGEN 26 mg/dL (6-20); CALCIUM 9.4 mg/dL (8.5-10.3); CARBON DIOXIDE - CO2 29 mmol/L (21-32); CHLORIDE 101 mmol/L (101-111); CHOL/HDL RATIO 3.1 (<5.0); CHOLESTEROL 168 mg/dL; CREATININE 1.2 mg/dL (0.6-1.2); GFR - MDRD 59 (>89); GLUCOSE 97 mg/dL (70-100); HDL CHOLESTEROL 55 mg/dL; LDL CHOLESTEROL,CALCULATED 96 mg/dL; LDL/HDL RATIO 1.7 (<3.6); POTASSIUM 3.7 mmol/L (3.5-5.0); SODIUM 138 mmol/L (135-145); TOTAL PROTEIN 7.6 g/dL (6.7-8.2); TRIGLYCERIDES 83 mg/dL; URIC ACID 7.8 mg/dL (2.6-7.2); VLDL CHOLESTEROL 17 mg/dL
[2021-03-13 18:37] LABS: EOSINOPHILS # (AUTO) 0.1 10^3/uL (0.0-0.7); EOSINOPHILS % (AUTO) 1.8 %; HCT - HEMATOCRIT 45.7 % (42.0-52.0); LYMPHOCYTES # (AUTO) 0.7 10^3/uL (1.5-3.5); LYMPHOCYTES % (AUTO) 16.6 %; MEAN CORPUSCULAR HEMOGLOBIN 30.9 pg (27.0-31.0); MEAN CORPUSCULAR HGB CONC 32.8 g/dL (32.0-36.0); MEAN PLATELET VOLUME 10.4 fL (7.4-11.4); MONOCYTES # (AUTO) 0.5 10^3/uL (0.0-1.0); MONOCYTES % (AUTO) 13.5 %; NEUTROPHILS # (AUTO) 2.6 10^3/uL (1.5-6.6); NEUTROPHILS % (AUTO) 66.8 %; PLT - PLATELET COUNT 233 10^3/uL (130-450); RED BLOOD COUNT 4.86 10^6/uL (4.70-6.10); RED CELL DISTRIBUTION WIDTH 13.8 % (12.0-15.0); WHITE BLOOD COUNT 3.9 x10^3/uL (4.8-10.8)
[2021-03-13 18:42] LABS: THYROID STIMULATING HORMONE 4.39 uIU/mL (0.34-5.60)
[2021-03-13 20:37] LABS: ESTIMATED AVERAGE GLUCOSE 103 mg/dL (70-100); HEMOGLOBIN A1c% 5.2 % (4.27-6.07)
== END 2021-03-13 23:59 | disposition home or self-care (01) ==
LOC: LAB.WCP 12:42
PROVIDERS: ATTEND Family Medicine
DX: I12.9 Hypertensive chronic kidney disease with stage 1 through stage 4 chronic kidney disease, or unspecified chronic kidney disease (principal); N18.30 Chronic kidney disease, stage 3 unspecified; R73.01 Impaired fasting glucose; E03.9 Hypothyroidism, unspecified; M10.9 Gout, unspecified
CPT/HCPCS: 36415; 80053; 80061; 83036; 83721; 84443; 84550; 85025

== ENCOUNTER 2021-07-28 08:58 | Emergency (ER) | payer MEDICARE ==
[2021-07-28] MEDS ORDERED: SODIUM CHLORIDE 0.9% 1,000 ML IV STA ×2 (09:25)
[2021-07-28 09:32] LABS: BASOPHILS % (AUTO) 0.2 %; EOSINOPHILS % (AUTO) 0.2 %; HCT - HEMATOCRIT 42.3 % (42.0-52.0); HGB - HEMOGLOBIN 14.8 g/dL (14.0-18.0); LYMPHOCYTES # (AUTO) 0.4 10^3/uL (1.5-3.5); LYMPHOCYTES % (AUTO) 9.1 %; MEAN CORPUSCULAR HEMOGLOBIN 31.5 pg (27.0-31.0); MEAN PLATELET VOLUME 9.4 fL (7.4-11.4); MONOCYTES # (AUTO) 0.6 10^3/uL (0.0-1.0); NEUTROPHILS # (AUTO) 3.6 10^3/uL (1.5-6.6); NEUTROPHILS % (AUTO) 77.3 %; PLT - PLATELET COUNT 183 10^3/uL (130-450); RED CELL DISTRIBUTION WIDTH 12.8 % (12.0-15.0); WHITE BLOOD COUNT 4.7 x10^3/uL (4.8-10.8)
--- NOTE | 2021-07-28 09:34 | ED Physician Documentation ---
History of Present Illness - Stated complaint Stated Complaint: C+ NAUSEA/DIZZY/SOA - Chief complaint Chief Complaint: Resp - History obtained from History obtained from: Patient - History of Present Illness Timing: How many days ago (12) Pain level max: 0 Pain level now: 0 - Additonal information Additional information: 75-year-old male presents to the emergency department stating that he is Covid positive. He tested positive about 12 days ago. Has had continued intermittent fevers at home. Decreased oral intake over the past 2 days. He has had his Covid vaccinations and booster shot. Has a history of rheumatic fever, yellow fever, uses CPAP at home. He states he mainly feels fatigued. No chest pain or shortness of breath. Mild cough. States feels similar to prior episodes of pneumonia. Some nausea but no vomiting. No abdominal pain. No rashes. Review of Systems Constitutional: reports: Fever Nose: denies: Rhinorrhea / runny nose, Congestion Throat: denies: Sore throat Cardiac: denies: Chest pain / pressure, Palpitations Respiratory: reports: Cough. denies: Dyspnea, Hemoptysis, Wheezing GI: reports: Nausea. denies: Abdominal Pain, Vomiting, Diarrhea : denies: Dysuria Skin: denies: Rash Musculoskeletal: denies: Neck pain, Back pain Neurologic: reports: Generalized weakness. denies: Focal weakness, Numbness, Headache PD PAST MEDICAL HISTORY - Past Medical History Cardiovascular: Hypertension, Atrial fibrillation, Murmur Respiratory: Sleep apnea, CPAP use Neuro: None Endocrine/Autoimmune: Type 2 diabetes, HyPOthyroidism GI: None : Incontinence, Frequency, Kidney stones HEENT: None Psych: Depression, Anxiety Musculoskeletal: Osteoarthritis Derm: Eczema, Other - Past Surgical History Past Surgical History: Yes Ortho: Knee replacement, Carpal Tunnel surgery, Other HEENT: Cataracts - Present Medications Home Medications: Ambulatory Orders Medication Instructions Recorded Confirmed Levothyroxine [Synthroid] 125 mcg PO QDAC 06/09/16 11/01/20 Oxybutynin Chloride [Ditropan Xl] 10 mg PO DAILY 06/09/16 11/01/20 Albuterol Sulfate [Proair Hfa 2 puffs INH Q4H PRN 10/09/16 11/01/20 Inhaler] Chlorthalidone 25 mg ORAL DAILY 10/07/17 11/01/20 Ascorbic Acid [Vitamin C] 1,000 mg PO DAILY 10/08/17 11/01/20 Cholecalciferol (Vitamin D3) 1,000 unit PO DAILY 10/08/17 11/01/20 [Vitamin D3] [place]-3 Fatty Acids/Fish Oil 1,000 mg PO DAILY 10/08/17 11/01/20 [[place]-3 Fish Oil 1,000 mg Sfgl] Apixaban [Eliquis] 5 mg PO BID #60 tablet 10/09/17 11/01/20 Dronedarone HCl [Multaq] 400 mg PO BID 11/01/20 11/01/20 HYDROmorphone [Dilaudid] 2 mg PO Q3H 11/01/20 11/01/20 Tamsulosin [Flomax] 0.4 mg PO DAILY 11/01/20 11/01/20 Venlafaxine ER [Effexor ER] 75 mg PO BID 11/01/20 11/01/20 hydrOXYzine PAMOATE [Vistaril] 25 mg PO Q6H 11/01/20 11/01/20 Amox/Clav 875/125 [Augmentin] 1 tab PO Q12H #20 tablet 07/28/21 Doxycycline Monohydrate 100 mg PO BID #20 cap 07/28/21 Promethazine [Phenergan] 25 mg PO Q6H PRN #10 tab 07/28/21 - Allergies Allergies/Adverse Reactions: Allergies Allergy/AdvReac Type Severity Reaction Status Date / Time codeine AdvReac Unknown Verified 11/01/20 02:30 metoprolol AdvReac Unknown Verified 11/01/20 02:30 - Social History Does the pt smoke?: No Smoking Status: Never smoker Does the pt drink ETOH?: No Does the pt have substance abuse?: No - Immunizations Immunizations are current?: Yes - POLST Patient has POLST: No PD ED PE NORMAL - Vitals Vital signs reviewed: Yes - General General: Alert and oriented X 3, No acute distress - HEENT HEENT: PERRL, Other (Dry lips and tongue) - Neck Neck: Supple, no meningeal sign - Cardiac Cardiac: RRR, Strong equal pulses - Respiratory Respiratory: No respiratory distress, Clear bilaterally - Abdomen Abdomen: Soft, Non tender, Non distended - Derm Derm: Warm and dry, No rash - Extremities Extremities: No edema - Neuro Neuro: Alert and oriented X 3 - Psych Psych: Normal mood, Normal affect Results - Vitals Vitals: Vital Signs - 24 hr 07/28/21 07/28/21 07/28/21 09:13 09:37 12:02 Temperature 38.0 C H Heart Rate 64 64 55 L Respiratory 20 17 16 Rate Blood Pressure 151/82 H 114/68 129/67 O2 Saturation 99 96 99 Oxygen O2 Source Room air - Labs Labs: Laboratory Tests 07/28/21 07/28/21 07/28/21 09:24 09:24 09:24 WBC 4.7 L RBC 4.70 Hgb 14.8 Hct 42.3 MCV 90.0 MCH 31.5 H MCHC 35.0 RDW 12.8 Plt Count 183 MPV 9.4 Neut # (Auto) 3.6 Lymph # (Auto) 0.4 L [place] # (Auto) 0.6 Eos # (Auto) 0.0 Baso # (Auto) 0.0 Absolute Nucleated RBC 0.00 Nucleated RBC % 0.0 PT 22.8 H INR 2.0 H APTT 40.1 H Sodium 133 L Potassium 3.3 L Chloride 96 L Carbon Dioxide 25 Anion Gap 12.0 BUN 22 H Creatinine 1.4 H Estimated GFR (MDRD) 49 L Glucose 106 H Lactic Acid Calcium 8.9 Total Bilirubin 1.2 H AST 18 ALT 16 Alkaline Phosphatase 79 Total Protein 7.4 Albumin 4.5 Globulin 2.9 Albumin/Globulin Ratio 1.6 Lipase 32 07/28/21 09:24 WBC RBC Hgb Hct MCV MCH MCHC RDW Plt Count MPV Neut # (Auto) Lymph # (Auto) [place] # (Auto) Eos # (Auto) Baso # (Auto) Absolute Nucleated RBC Nucleated RBC % PT INR APTT Sodium Potassium Chloride Carbon Dioxide Anion Gap BUN Creatinine Estimated GFR (MDRD) Glucose Lactic Acid 1.0 Calcium Total Bilirubin AST ALT Alkaline Phosphatase Total Protein Albumin Globulin Albumin/Globulin Ratio Lipase - Rads (name of study) cxr Radiology: Final report received, EMP read contemporaneously, See rad report (IMPRESSION: Minimal streaky bibasilar opacities likely representing atelectasis. Early airspace disease/pneumonia not excluded given reported his tory of COVID infection. No focal consolidations visualized. ) PD MEDICAL DECISION MAKING - ED course Complexity details: reviewed results, re-evaluated patient, considered differential, d/w patient ED course: Patient is a 75-year-old male who has been sick with Covid for the past 12 days. He is vaccinated and boosted. Appears to have a right lower lobe pneumonia on chest x-ray today. We will place him on antibiotics for this. Patient feels better after IV fluids. No respiratory distress or hypoxia. Patient counseled regarding signs and symptoms for which I believe and urgent re-evaluation would be necessary. Patient with good understanding of and agreement to plan and is comfortable going home at this time This document was made in part using voice recognition software. While efforts are made to proofread this document, sound alike and grammatical errors may occur. Departure - Departure Disposition: 01 Home, Self Care Clinical Impression: COVID-19 Pneumonia Qualifiers: Pneumonia type: due to unspecified organism Laterality: right Lung location: lower lobe of lung Qualified Code(s): J18.9 - Pneumonia, unspecified organism Condition: Good Instructions: ED Pneumonia Adult Follow-Up: Raquel Stinson DO [Primary Care Provider] - Within 1 week Prescriptions: Amox/Clav 875/125 [Augmentin] 1 tab PO Q12H #20 tablet Doxycycline Monohydrate 100 mg PO BID #20 cap Promethazine [Phenergan] 25 mg PO Q6H PRN #10 tab PRN Reason: Nausea / Vomiting Comments: Please follow-up with your doctor for further care. Take all antibiotics until gone. Return if you worsen. Drink plenty of fluids. Your prescriptions were sent to [facility] in [place]. Discharge Date/Time: 07/28/21 12:29
[2021-07-28 09:42] LABS: PT - PROTHROMBIN TIME 22.8 secs (9.9-12.6)
[2021-07-28 09:47] LABS: ALBUMIN 4.5 g/dL (3.2-5.5); ALBUMIN/GLOBULIN RATIO 1.6 (1.0-2.2); BILIRUBIN,TOTAL 1.2 mg/dL (0.2-1.0); CALCIUM 8.9 mg/dL (8.5-10.3); CREATININE 1.4 mg/dL (0.6-1.2); POTASSIUM 3.3 mmol/L (3.5-5.0); TOTAL PROTEIN 7.4 g/dL (6.7-8.2)
[2021-07-28 09:50] LABS: PARTIAL THROMBOPLASTIN TIME 40.1 secs (24.9-33.3)
--- NOTE | 2021-07-28 09:55 | XRAY Report ---
PROCEDURE: Chest 1 View X-Ray INDICATIONS: cough, fever, covid TECHNIQUE: One view of the chest was acquired. COMPARISON: Acute abdominal series dated 11/01/2020 FINDINGS: Surgical changes and devices: None. Lungs and pleura: No pleural effusions or pneumothorax. Minimal streaky bibasilar opacities. No foca l consolidations. Lungs are otherwise clear. Mediastinum: Mediastinal contours appear normal. Heart size is normal. Bones and chest wall: No suspicious bony lesions. Overlying soft tissues appear unremarkable. IMPRESSION: Minimal streaky bibasilar opacities likely representing atelectasis. Early airspace disease/pneumonia not excluded given reported history of COVID infection. No focal consolidations visualized. Reviewed by: Stephen Caballero MD on 07/28/2021 8:54 AM [facility] Approved by: Stephen Caballero MD on 07/28/2021 8:54 AM [facility] Station ID: [id number]
[2021-07-28] MEDS ORDERED: AMOX/CLAV 875 MG/125 MG TABLET PO STA (11:12)
[2021-07-28] MEDS ORDERED: DOXYCYCLINE 100 MG TABLET PO STA (11:12)
[2021-07-28 12:03] VITALS: BP 129/67
== END 2021-07-28 12:29 | disposition home or self-care (01) ==
LOC: ED 08:58
DX: U07.1 COVID-19 (principal); J18.9 Pneumonia, unspecified organism; I10 Essential (primary) hypertension; I48.91 Unspecified atrial fibrillation; E11.9 Type 2 diabetes mellitus without complications
CPT/HCPCS: 36415; 71045; 80053; 83605; 83690; 85025; 85610; 85730; 87040; 99283; 99284; A9270

== ENCOUNTER 2021-07-30 16:44 | Emergency (ER) | payer MEDICARE ==
[2021-07-30] MEDS ORDERED: BENZONATATE 100 MG CAPSULE PO STA (17:55)
--- NOTE | 2021-07-30 18:04 | ED Physician Documentation ---
History of Present Illness - Stated complaint Stated Complaint: C+/SOA - Chief complaint Chief Complaint: Resp - History obtained from History obtained from: Patient - History of Present Illness Timing: How many weeks ago (2) Pain level max: 0 Pain level now: 0 - Additonal information Additional information: 75-year-old male with a positive Covid test 2 weeks ago. Currently being treated for pneumonia. He states that he feels like he is continuing to have significant coughing that is keeping him up at night. He has an albuterol inhaler but is only using it once per day. No spacer. He states he has fevers but only at night around 2 AM. He takes Tylenol and this resolves the fever. He was seen at the walk-in clinic today and sent here for further evaluation. No hypoxia. No respiratory distress. Review of Systems Constitutional: reports: Fever, Chills (Intermittent fevers at night. He states he gets chilled and has sweats.) GI: reports: Nausea. denies: Vomiting, Diarrhea, Hematemesis, Bloody / black stool PD PAST MEDICAL HISTORY - Past Medical History Cardiovascular: Hypertension, Atrial fibrillation, Murmur Respiratory: Sleep apnea, CPAP use Neuro: None Endocrine/Autoimmune: Type 2 diabetes, HyPOthyroidism GI: None : Incontinence, Frequency, Kidney stones HEENT: None Psych: Depression, Anxiety Musculoskeletal: Osteoarthritis Derm: Eczema, Other - Past Surgical History Past Surgical History: Yes Ortho: Knee replacement, Carpal Tunnel surgery, Other HEENT: Cataracts - Present Medications Home Medications: Ambulatory Orders Medication Instructions Recorded Confirmed Levothyroxine [Synthroid] 125 mcg PO QDAC 06/09/16 11/01/20 Oxybutynin Chloride [Ditropan Xl] 10 mg PO DAILY 06/09/16 11/01/20 Albuterol Sulfate [Proair Hfa 2 puffs INH Q4H PRN 10/09/16 11/01/20 Inhaler] Chlorthalidone 25 mg ORAL DAILY 10/07/17 11/01/20 Ascorbic Acid [Vitamin C] 1,000 mg PO DAILY 10/08/17 11/01/20 Cholecalciferol (Vitamin D3) 1,000 unit PO DAILY 10/08/17 11/01/20 [Vitamin D3] [place]-3 Fatty Acids/Fish Oil 1,000 mg PO DAILY 10/08/17 11/01/20 [[place]-3 Fish Oil 1,000 mg Sfgl] Apixaban [Eliquis] 5 mg PO BID #60 tablet 10/09/17 11/01/20 Dronedarone HCl [Multaq] 400 mg PO BID 11/01/20 11/01/20 HYDROmorphone [Dilaudid] 2 mg PO Q3H 11/01/20 11/01/20 Tamsulosin [Flomax] 0.4 mg PO DAILY 11/01/20 11/01/20 Venlafaxine ER [Effexor ER] 75 mg PO BID 11/01/20 11/01/20 hydrOXYzine PAMOATE [Vistaril] 25 mg PO Q6H 11/01/20 11/01/20 Amox/Clav 875/125 [Augmentin] 1 tab PO Q12H #20 tablet 07/28/21 Doxycycline Monohydrate 100 mg PO BID #20 cap 07/28/21 Promethazine [Phenergan] 25 mg PO Q6H PRN #10 tab 07/28/21 Albuterol Sulf [Ventolin Hfa 1 - 2 puffs INH Q4HR PRN #1 inhaler 07/30/21 Inhaler] Benzonatate [Tessalon] 200 mg PO TID PRN #30 cap 07/30/21 - Allergies Allergies/Adverse Reactions: Allergies Allergy/AdvReac Type Severity Reaction Status Date / Time codeine AdvReac Unknown Verified 11/01/20 02:30 metoprolol AdvReac Unknown Verified 11/01/20 02:30 - Social History Does the pt smoke?: No Smoking Status: Never smoker Does the pt drink ETOH?: No Does the pt have substance abuse?: No - Immunizations Immunizations are current?: Yes - POLST Patient has POLST: No PD ED PE NORMAL - Vitals Vital signs reviewed: Yes - General General: Alert and oriented X 3, No acute distress - HEENT HEENT: PERRL, Moist mucous membranes - Neck Neck: Supple, no meningeal sign - Cardiac Cardiac: RRR, Strong equal pulses - Respiratory Respiratory: No respiratory distress, Clear bilaterally - Abdomen Abdomen: Soft, Non tender, Non distended - Derm Derm: Warm and dry - Extremities Extremities: No edema, No calf tenderness / cord - Neuro Neuro: Alert and oriented X 3 - Psych Psych: Normal mood, Normal affect Results - Vitals Vitals: Vital Signs - 24 hr 07/30/21 07/30/21 16:58 19:03 Temperature 37.4 C Heart Rate 88 64 Respiratory 24 18 Rate Blood Pressure 127/72 134/80 H O2 Saturation 100 98 Oxygen O2 Source Room air PD MEDICAL DECISION MAKING - ED course Complexity details: reviewed results, re-evaluated patient, considered differential, d/w patient ED course: Patient just recently had x-rays and laboratory testing. No indication for repeating these today. His main concern is coughing. Will prescribe cough medication. He was also given a spacer and teaching about how to use the albuterol inhaler with the spacer. He is requesting a new inhaler for home. Patient is very well-appearing, nontoxic. Afebrile. No hypoxia. No respiratory distress. Speaking in full sentences without any difficulty. Patient counseled regarding signs and symptoms for which I believe and urgent re-evaluation would be necessary. Patient with good understanding of and agreement to plan and is comfortable going home at this time This document was made in part using voice recognition software. While efforts are made to proofread this document, sound alike and grammatical errors may occur. Departure - Departure Disposition: Home, Self Care Clinical Impression: COVID-19 Condition: Good Instructions: ED URI Viral Follow-Up: Raquel Stinson DO [Primary Care Provider] - Within 1 week Prescriptions: Albuterol Sulf [Ventolin Hfa Inhaler] 1 - 2 puffs INH Q4HR PRN #1 inhaler PRN Reason: Shortness Of Air/Wheezing Benzonatate [Tessalon] 200 mg PO TID PRN #30 cap PRN Reason: Cough Comments: Your prescriptions were sent to [facility] in [place]. You need to use your inhaler likely every 4-6 hours. You need to use it with a spacer. We will also write you medication for the coughing. Continue your antibiotics. Follow-up with your doctor for further care. Discharge Date/Time: 07/30/21 19:15
[2021-07-30 19:56] VITALS: BP 134/80
== END 2021-07-30 19:15 | disposition home or self-care (01) ==
LOC: ED 16:44
DX: U07.1 COVID-19 (principal); I10 Essential (primary) hypertension; I48.91 Unspecified atrial fibrillation; E11.9 Type 2 diabetes mellitus without complications
CPT/HCPCS: 94664; 99281; 99283; A9270

== ENCOUNTER 2021-08-09 12:30 | Outpatient (CLI) | payer MEDICARE ==
[2021-08-09 12:54] LABS: BASOPHILS % (AUTO) 0.6 %; EOSINOPHILS # (AUTO) 0.1 10^3/uL (0.0-0.7); EOSINOPHILS % (AUTO) 1.5 %; HCT - HEMATOCRIT 43.3 % (42.0-52.0); LYMPHOCYTES # (AUTO) 0.9 10^3/uL (1.5-3.5); LYMPHOCYTES % (AUTO) 12.8 %; MEAN CORPUSCULAR HEMOGLOBIN 31.6 pg (27.0-31.0); MEAN CORPUSCULAR HGB CONC 34.6 g/dL (32.0-36.0); MEAN CORPUSCULAR VOLUME 91.2 fL (80.0-94.0); MEAN PLATELET VOLUME 9.2 fL (7.4-11.4); MONOCYTES # (AUTO) 0.5 10^3/uL (0.0-1.0); MONOCYTES % (AUTO) 7.7 %; NEUTROPHILS # (AUTO) 5.1 10^3/uL (1.5-6.6); NEUTROPHILS % (AUTO) 76.9 %; PLT - PLATELET COUNT 321 10^3/uL (130-450); RED BLOOD COUNT 4.75 10^6/uL (4.70-6.10); WHITE BLOOD COUNT 6.7 x10^3/uL (4.8-10.8)
[2021-08-09 13:09] LABS: ALBUMIN 4.4 g/dL (3.2-5.5); ALBUMIN/GLOBULIN RATIO 1.4 (1.0-2.2); CALCIUM 9.3 mg/dL (8.5-10.3); CREATININE 1.4 mg/dL (0.6-1.2); POTASSIUM 3.5 mmol/L (3.5-5.0); TOTAL PROTEIN 7.6 g/dL (6.7-8.2); URIC ACID 6.2 mg/dL (2.6-7.2)
[2021-08-09 13:27] LABS: THYROID STIMULATING HORMONE 5.91 uIU/mL (0.34-5.60)
[2021-08-09 14:06] LABS: FREE T4 (FREE THYROXINE) 1.18 ng/dL (0.58-1.64)
== END 2021-08-09 12:31 | disposition home or self-care (01) ==
LOC: LAB 12:30
PROVIDERS: ATTEND Internal Medicine
DX: I10 Essential (primary) hypertension (principal); E03.9 Hypothyroidism, unspecified; M10.9 Gout, unspecified; R19.7 Diarrhea, unspecified
CPT/HCPCS: 36415; 80053; 84439; 84443; 84550; 85025

== ENCOUNTER 2021-09-20 13:32 | Outpatient (CLI) | payer MEDICARE ==
[2021-09-20 18:37] LABS: CHOL/HDL RATIO 3.3 (<5.0); CHOLESTEROL 152 mg/dL; HDL CHOLESTEROL 46 mg/dL; LDL CHOLESTEROL,CALCULATED 86 mg/dL; LDL/HDL RATIO 1.9 (<3.6); TRIGLYCERIDES 99 mg/dL; VLDL CHOLESTEROL 20 mg/dL
[2021-09-20 19:26] LABS: ESTIMATED AVERAGE GLUCOSE 91 mg/dL (70-100); HEMOGLOBIN A1c% 4.8 % (4.27-6.07)
== END 2021-09-20 13:33 | disposition home or self-care (01) ==
LOC: LAB.N 13:32
PROVIDERS: ATTEND Internal Medicine
DX: E11.9 Type 2 diabetes mellitus without complications (principal)
CPT/HCPCS: 36415; 80061; 81599; 83036; 83721

== ENCOUNTER 2021-10-07 14:38 | Outpatient (CLI) | payer MEDICARE ==
--- NOTE | 2021-10-07 16:42 | CT Report ---
PROCEDURE: CHEST WO INDICATIONS: ASBESTOS EXPOSURE TECHNIQUE: Noncontrast 1mm axial images were acquired from the pulmonary apices to the posterior costophrenic an gles. Axial 5 mm soft tissue kernel reconstructions were performed as well as 8 mm axial MIP and cor onal and sagittal 5 mm reformations. For radiation dose reduction, the following was used: automate d exposure control, adjustment of mA and/or kV according to patient size. COMPARISON: Reference is made to the CT abdomen report dated January 29, 2019. FINDINGS: Image quality: Some images are degraded by respiratory motion artifact. Thyroid: Not well seen. Vasculature: The thoracic aorta and arch vasculature have a normal contrasted appearance and are norm al size and contour. No evidence for dissection. Heart: No cardiomegaly or significant pericardial effusion. Mediastinum: No pathologic lymph node enlargement by size criteria. Lung/pleura: No pleural effusion, consolidation, or pneumothorax. No suspicious pulmonary nodule or m ass. Tracheobronchial tree: Patent. Upper abdomen: No significant abnormality. Mild splenomegaly. Bones: Mild kyphosis with multifocal degenerative change. Chest wall: The chest wall and axilla are within normal limits. IMPRESSION: 1.No significant abnormality. Consider annual low-dose CT screening based on the patient's risk factors and is clinically warranted . Reviewed by: Luciano Gomes MD on 10/07/2021 4:40 PM PDT Approved by: Luciano Gomes MD on 10/07/2021 4:40 PM PDT Station ID: [id number]
== END 2021-10-07 14:39 | disposition home or self-care (01) ==
LOC: DI 14:38
PROVIDERS: ATTEND Family Medicine
DX: U07.1 COVID-19 (principal); Z77.090 Contact with and (suspected) exposure to asbestos

== ENCOUNTER 2021-11-14 15:22 | Outpatient (CLI) | payer MEDICARE ==
[2021-11-15 06:09] LABS: HBsAG SCREEN Negative (Negative); HCV AB <0.1 s/co ratio (0.0-0.9); HEPATITIS A TOTAL AB Positive (Negative); HEPATITIS B SURFACE AB QUAL Non Reactive (.)
[2021-11-18 15:08] LABS: A/G RATIO 1.5 (0.7-1.7); ALBUMIN 4.1 g/dL (2.9-4.4); ALPHA-1-GLOBULIN 0.3 g/dL (0.0-0.4); ALPHA-2-GLOBULIN 0.7 g/dL (0.4-1.0); GAMMA GLOBULIN 0.8 g/dL (0.4-1.8); GLOBULIN TOTAL 2.8 g/dL (2.2-3.9); IMMUNOGLOBULIN A 179 mg/dL (61-437); IMMUNOGLOBULIN G 838 mg/dL (603-1613); IMMUNOGLOBULIN M 31 mg/dL (15-143); M-SPIKE Not Observed g/dL (Not Observed); PROTEIN TOTAL 6.9 g/dL (6.0-8.5)
== END 2021-11-14 15:23 | disposition home or self-care (01) ==
LOC: LAB.N 15:22
PROVIDERS: ATTEND Internal Medicine
DX: G62.9 Polyneuropathy, unspecified (principal); Z87.19 Personal history of other diseases of the digestive system
CPT/HCPCS: 36415; 82607; 82784; 84155; 84165; 86334; 86704; 86706; 86708; 86803; 87340

== ENCOUNTER 2022-08-11 14:43 | Outpatient (CLI) | payer MEDICARE ==
[2022-08-11 18:12] LABS: CALCIUM 9.2 mg/dL (8.5-10.3); CREATININE 1.2 mg/dL (0.6-1.2); POTASSIUM 3.8 mmol/L (3.5-5.0)
[2022-08-11 18:22] LABS: THYROID STIMULATING HORMONE 4.12 uIU/mL (0.34-5.60)
== END 2022-08-11 14:44 | disposition home or self-care (01) ==
LOC: LAB.N 14:43
PROVIDERS: ATTEND Internal Medicine
DX: I10 Essential (primary) hypertension (principal); E03.9 Hypothyroidism, unspecified
CPT/HCPCS: 36415; 80048; 84443

== ENCOUNTER 2023-01-26 14:18 | Outpatient (CLI) | payer MEDICARE ==
[2023-01-26 18:45] LABS: BASOPHILS % (AUTO) 0.3 %; EOSINOPHILS # (AUTO) 0.1 10^3/uL (0.0-0.7); EOSINOPHILS % (AUTO) 1.3 %; HCT - HEMATOCRIT 44.3 % (42.0-52.0); HGB - HEMOGLOBIN 14.9 g/dL (14.0-18.0); LYMPHOCYTES # (AUTO) 0.7 10^3/uL (1.5-3.5); LYMPHOCYTES % (AUTO) 17.2 %; MEAN CORPUSCULAR HEMOGLOBIN 31.6 pg (27.0-31.0); MEAN CORPUSCULAR HGB CONC 33.6 g/dL (32.0-36.0); MEAN CORPUSCULAR VOLUME 94.1 fL (80.0-94.0); MEAN PLATELET VOLUME 10.2 fL (7.4-11.4); MONOCYTES # (AUTO) 0.5 10^3/uL (0.0-1.0); MONOCYTES % (AUTO) 11.9 %; NEUTROPHILS # (AUTO) 2.6 10^3/uL (1.5-6.6); PLT - PLATELET COUNT 196 10^3/uL (130-450); RED BLOOD COUNT 4.71 10^6/uL (4.70-6.10); RED CELL DISTRIBUTION WIDTH 12.6 % (12.0-15.0); WHITE BLOOD COUNT 3.8 x10^3/uL (4.8-10.8)
[2023-01-26 19:09] LABS: ALBUMIN 4.7 g/dL (3.2-5.5); ALKALINE PHOSPHATASE 73 IU/L (42-121); ALT ALANINE AMINOTRANSFERASE 18 IU/L (10-60); AST ASPARTATE AMINOTRANSFERASE 18 IU/L (10-42); BUN - BLOOD UREA NITROGEN 23 mg/dL (6-20); CALCIUM 9.9 mg/dL (8.5-10.3); CARBON DIOXIDE - CO2 27 mmol/L (21-32); CHLORIDE 106 mmol/L (101-111); CHOL/HDL RATIO 2.8 (<5.0); CHOLESTEROL 148 mg/dL; CREATININE 1.3 mg/dL (0.6-1.3); GFR - MDRD 53 (>89); GLUCOSE 91 mg/dL (74-104); HDL CHOLESTEROL 53 mg/dL; LDL CHOLESTEROL,CALCULATED 79 mg/dL; LDL/HDL RATIO 1.5 (<3.6); POTASSIUM 3.8 mmol/L (3.5-4.5); SODIUM 139 mmol/L (135-145); TOTAL PROTEIN 7.1 g/dL (6.4-8.9); TRIGLYCERIDES 78 mg/dL (48-352); VLDL CHOLESTEROL 16 mg/dL
== END 2023-01-26 14:19 | disposition home or self-care (01) ==
LOC: LAB.N 14:18
PROVIDERS: ATTEND Internal Medicine
DX: I10 Essential (primary) hypertension (principal); Z13.220 Encounter for screening for lipoid disorders; E03.9 Hypothyroidism, unspecified; M10.9 Gout, unspecified
CPT/HCPCS: 36415; 80053; 80061; 83721; 84443; 84550; 85025

== ENCOUNTER 2023-09-10 13:02 | Outpatient (CLI) | payer MEDICARE ==
[2023-09-10 17:44] LABS: BASOPHILS % (AUTO) 0.6 %; EOSINOPHILS % (AUTO) 0.8 %; HCT - HEMATOCRIT 45.8 % (42.0-52.0); HGB - HEMOGLOBIN 15.2 g/dL (14.0-18.0); LYMPHOCYTES # (AUTO) 0.6 10^3/uL (1.5-3.5); LYMPHOCYTES % (AUTO) 11.2 %; MEAN CORPUSCULAR HEMOGLOBIN 31.5 pg (27.0-31.0); MEAN CORPUSCULAR HGB CONC 33.2 g/dL (32.0-36.0); MEAN CORPUSCULAR VOLUME 94.8 fL (80.0-94.0); MEAN PLATELET VOLUME 10.2 fL (7.4-11.4); MONOCYTES # (AUTO) 0.5 10^3/uL (0.0-1.0); MONOCYTES % (AUTO) 8.9 %; NEUTROPHILS # (AUTO) 4.1 10^3/uL (1.5-6.6); NEUTROPHILS % (AUTO) 78.3 %; PLT - PLATELET COUNT 211 10^3/uL (130-450); RED BLOOD COUNT 4.83 10^6/uL (4.70-6.10); RED CELL DISTRIBUTION WIDTH 12.8 % (12.0-15.0); WHITE BLOOD COUNT 5.2 x10^3/uL (4.8-10.8)
[2023-09-10 18:14] LABS: ALBUMIN 4.6 g/dL (3.2-5.5); ALBUMIN/GLOBULIN RATIO 1.9 (1.0-2.2); ALKALINE PHOSPHATASE 69 IU/L (42-121); ALT ALANINE AMINOTRANSFERASE 19 IU/L (10-60); AST ASPARTATE AMINOTRANSFERASE 22 IU/L (10-42); BILIRUBIN,TOTAL 0.7 mg/dL (0.2-1.0); BUN - BLOOD UREA NITROGEN 25 mg/dL (6-20); CALCIUM 9.8 mg/dL (8.5-10.3); CARBON DIOXIDE - CO2 27 mmol/L (21-32); CHLORIDE 104 mmol/L (101-111); CHOL/HDL RATIO 2.8 (<5.0); CHOLESTEROL 158 mg/dL; CREATININE 1.3 mg/dL (0.6-1.3); GFR - MDRD 53 (>89); GLUCOSE 93 mg/dL (74-104); HDL CHOLESTEROL 56 mg/dL; LDL CHOLESTEROL,CALCULATED 88 mg/dL; LDL/HDL RATIO 1.6 (<3.6); POTASSIUM 3.7 mmol/L (3.5-4.5); SODIUM 138 mmol/L (135-145); TRIGLYCERIDES 71 mg/dL (48-352); VLDL CHOLESTEROL 14 mg/dL
[2023-09-10 18:18] LABS: THYROID STIMULATING HORMONE 2.71 uIU/mL (0.34-5.60)
== END 2023-09-10 13:03 ==
LOC: LAB.N 13:02
PROVIDERS: ATTEND Internal Medicine
DX: I10 Essential (primary) hypertension (principal); N40.1 Benign prostatic hyperplasia with lower urinary tract symptoms; E03.9 Hypothyroidism, unspecified
CPT/HCPCS: 36415; 80053; 80061; 83721; 84153; 84443; 85025

== ENCOUNTER 2024-01-19 12:08 | Outpatient (CLI) | payer MEDICARE ==
[2024-01-19 18:40] LABS: BASOPHILS % (AUTO) 0.6 %; EOSINOPHILS # (AUTO) 0.1 10^3/uL (0.0-0.7); EOSINOPHILS % (AUTO) 2.3 %; HCT - HEMATOCRIT 44.5 % (42.0-52.0); HGB - HEMOGLOBIN 15.1 g/dL (14.0-18.0); LYMPHOCYTES # (AUTO) 0.6 10^3/uL (1.5-3.5); LYMPHOCYTES % (AUTO) 18.6 %; MEAN CORPUSCULAR HEMOGLOBIN 31.5 pg (27.0-31.0); MEAN CORPUSCULAR HGB CONC 33.9 g/dL (32.0-36.0); MEAN CORPUSCULAR VOLUME 92.9 fL (80.0-94.0); MEAN PLATELET VOLUME 10.3 fL (7.4-11.4); MONOCYTES # (AUTO) 0.5 10^3/uL (0.0-1.0); MONOCYTES % (AUTO) 14.5 %; NEUTROPHILS # (AUTO) 2.2 10^3/uL (1.5-6.6); NEUTROPHILS % (AUTO) 63.7 %; PLT - PLATELET COUNT 194 10^3/uL (130-450); RED BLOOD COUNT 4.79 10^6/uL (4.70-6.10); RED CELL DISTRIBUTION WIDTH 13.1 % (12.0-15.0); WHITE BLOOD COUNT 3.5 x10^3/uL (4.8-10.8)
[2024-01-19 19:28] LABS: ALBUMIN 4.7 g/dL (3.2-5.5); BILIRUBIN,TOTAL 0.8 mg/dL (0.2-1.0); CALCIUM 9.4 mg/dL (8.5-10.3); CREATININE 1.3 mg/dL (0.6-1.3); POTASSIUM 3.6 mmol/L (3.5-4.5); TOTAL PROTEIN 7.1 g/dL (6.4-8.9)
== END 2024-01-19 12:09 | disposition home or self-care (01) ==
LOC: LAB.N 12:08
PROVIDERS: ATTEND Internal Medicine
DX: I48.91 Unspecified atrial fibrillation (principal); Z79.899 Other long term (current) drug therapy; R00.2 Palpitations; E66.9 Obesity, unspecified
CPT/HCPCS: 36415; 80053; 83735; 85025